=== PATIENT | female | born 1960 | race American Indian/Alaskan Native ===

== ENCOUNTER 2016-09-09 17:22 | Emergency (ER) | payer SELFPAY ==
--- NOTE | 2016-09-09 19:30 | Cat Scan Report ---
FINAL REPORT EXAM: CT HEAD/BRAIN WO CON HISTORY: Injury to back of head TECHNIQUE: CT head without contrast PRIORS: None. FINDINGS: There is acute intraparenchymal hyperdense focus within the right posterior parietal lobe at the calderon-white matter junction consistent in appearance with hemorrhagic contusion. No extra-axial hemorrhage identified. Ventricles and sulci are within normal limits. No additional acute parenchymal abnormalities are seen. No fracture is identified. Visualized portion of the paranasal sinuses and the mastoids are unremarkable. IMPRESSION: Acute right posterior parietal hemorrhagic contusion
[2016-09-09] MEDS ORDERED: ZOFRAN IV ONE (20:17)
[2016-09-09] MEDS ORDERED: MORPHINE IV ONE (20:17)
[2016-09-09] MEDS ORDERED: APRESOLINE IV ONE (20:18)
[2016-09-09] MEDS ORDERED: KEPPRA 1,000 MG in D5W 100 ML IV ONE (20:18)
--- NOTE | 2016-09-09 20:50 | Emergency Department Report ---
ED Dizziness HPI - General Chief Complaint: Dizziness Stated Complaint: FALL/BUMP BACK OF HEAD/PAIN Time Seen by Provider: 09/09/16 20:13 Source: patient Mode of arrival: Ambulatory Limitations: No Limitations - History of Present Illness Initial Comments: 56-year-old female with past medical history of hypertension presenting to the emergency department complaining of dizziness, headache, and lightheadedness. Patient states she had a fall from a flight of steps in her home last week after she tripped. She states that she likely did hit her head because she does not remember the event. Per family members she is able to get up and when EMS came to evaluate her she stated she would not go to the hospital to be evaluated with them. Pt does not recall this. Patient states since the fall she 's been having intermittent headaches, lightheadedness, forgetfulness. Patient states she also has right-sided rib pain shelia mild neck pain. Patient wants her primary care doctor's office today and she was told to come to the ED for further evaluation. She endorses mild neck pain MD Complaint: dizziness, lightheadedness -: Sudden, days(s) (7) Timing: sudden onset Description: lightheadedness History of Trauma: Yes (fell down stairs) Improves With: nothing Worsens With: nothing Associated Symptoms: chest pain. denies: confusion, diaphoresis, fever/chills, loss of appetite, malaise, seizure, shortness of breath, syncope, weakness - Related Data Home Medications Medication Instructions Recorded Confirmed Last Taken Cyproheptadine [Periactin] 4 mg PO BID 09/09/16 09/09/16 09/08/16 Lurasidone HCl [Latuda] 40 mg PO QDAY 09/09/16 09/09/16 09/08/16 Naproxen Sodium [Aleve TAB] 220 mg PO QDAY PRN 09/09/16 09/09/16 09/09/16 Nitroglycerin [Nitrostat] 0.4 mg PO PRN 09/09/16 09/09/16 Unknown Quinapril HCl [Quinapril HCl] 10 mg PO QDAY 09/09/16 09/09/16 09/08/16 busPIRone [Buspar] 10 mg PO TID 09/09/16 09/09/16 09/09/16 traZODone [Desyrel] 100 mg PO QHS 09/09/16 09/09/16 09/08/16 Allergies Allergy/AdvReac Type Severity Reaction Status Date / Time No Known Allergies Allergy Verified 09/09/16 18:08 ED Review of Systems ROS: Stated complaint: FALL/BUMP BACK OF HEAD/PAIN Other details as noted in HPI Constitutional: denies: chills, fever Eyes: denies: eye pain, eye discharge, vision change ENT: denies: ear pain, throat pain Respiratory: denies: cough, shortness of breath, wheezing Cardiovascular: denies: chest pain, palpitations Endocrine: no symptoms reported Gastrointestinal: denies: abdominal pain, nausea, diarrhea Genitourinary: denies: urgency, dysuria, discharge Musculoskeletal: denies: back pain, joint swelling, arthralgia Skin: denies: rash, lesions Neurological: headache, vertigo. denies: weakness, numbness, paresthesias Psychiatric: denies: anxiety, depression Hematological/Lymphatic: denies: easy bleeding, easy bruising ED Past Medical Hx - Past Medical History Previous Medical History?: Yes Hx Hypertension: Yes Additional medical history: Depression, Anxiety - Social History Smoking Status: Never Smoker Substance Use Type: Alcohol - Medications Home Medications: Home Medications Medication Instructions Recorded Confirmed Last Taken Type Cyproheptadine [Periactin] 4 mg PO BID 09/09/16 09/09/16 09/08/16 History Lurasidone HCl [Latuda] 40 mg PO QDAY 09/09/16 09/09/16 09/08/16 History Naproxen Sodium [Aleve TAB] 220 mg PO QDAY PRN 09/09/16 09/09/16 09/09/16 History Nitroglycerin [Nitrostat] 0.4 mg PO PRN 09/09/16 09/09/16 Unknown History Quinapril HCl [Quinapril HCl] 10 mg PO QDAY 09/09/16 09/09/16 09/08/16 History busPIRone [Buspar] 10 mg PO TID 09/09/16 09/09/16 09/09/16 History traZODone [Desyrel] 100 mg PO QHS 09/09/16 09/09/16 09/08/16 History ED Physical Exam - General Limitations: No Limitations General appearance: alert, in no apparent distress - Head Head exam: Present: atraumatic, normocephalic - Eye Eye exam: Present: normal appearance - ENT ENT exam: Present: mucous membranes moist - Neck Neck exam: Present: normal inspection, tenderness (paraspinal tenderness ), full ROM - Respiratory Respiratory exam: Present: normal lung sounds bilaterally. Absent: respiratory distress, wheezes, rales, rhonchi - Cardiovascular Cardiovascular Exam: Present: regular rate, normal rhythm, other (right sided chest wall tenderness ). Absent: systolic murmur, diastolic murmur, rubs, gallop - GI/Abdominal GI/Abdominal exam: Present: soft, normal bowel sounds. Absent: distended, tenderness, guarding - Extremities Exam Extremities exam: Present: normal inspection, full ROM. Absent: tenderness, normal capillary refill, pedal edema, calf tenderness - Back Exam Back exam: Present: normal inspection - Neurological Exam Neurological exam: Present: alert, oriented X3, CN II-XII intact, normal gait, other (GCS 15 ). Absent: motor sensory deficit - Psychiatric Psychiatric exam: Present: normal affect, normal mood - Skin Skin exam: Present: warm, dry, intact, normal color. Absent: rash ED Course Vital Signs 09/09/16 09/09/16 09/09/16 18:08 19:59 20:54 Temperature 98.4 F Pulse Rate 68 74 104 H Respiratory 16 16 Rate Blood Pressure 160/88 180/88 Blood Pressure 196/97 [Left] O2 Sat by Pulse 100 97 Oximetry 09/09/16 22:11 Temperature Pulse Rate 84 Respiratory 16 Rate Blood Pressure Blood Pressure 156/104 [Left] O2 Sat by Pulse 96 Oximetry ED Medical Decision Making - EKG Data -: EKG Interpreted by Me EKG shows normal: sinus rhythm (69), axis (normal ), intervals (QTC 69), QRS complexes Rate: normal - EKG Data When compared to previous EKG there are: previous EKG unavailable - Radiology Data Radiology results: report reviewed, image reviewed interpreted by me: Final impression a CT had acute right posterior parietal hemorrhagic contusion. Dr. SLOAN. CT cervical spine was negative for acute findings. - Medical Decision Making 56-year-old female with past medical history of hypertension presenting to the emergency department complaining of lightheadedness, dizziness, headache likely secondary to cerebral contusion appreciated on CT. Patient will be transferred to [facility] for trauma workup. Trauma surgeon Dr. Bowser has accepted the patient to the ER. Patient GCS 15 well appearing and agrees for transfer. - Differential Diagnosis SDH, SAH, cervical spine fracture Critical Care Time: Yes Critical care attestation.: If time is entered above; I have spent that time in minutes in the direct care of this critically ill patient, excluding procedure time. Critical Care Time: 35 ED Disposition Clinical Impression: Cerebral contusion, Contusion, chest wall, Cervical sprain Disposition: DC/TX-70 ANOTHER TYPE HLTHCARE Is pt being admited?: No Does the pt Need Aspirin: No Condition: Stable Referrals: PRIMARY CARE, [Primary Care Provider] - 3-5 Days
[2016-09-09 21:02] LABS: Partial Thromboplastin Time 26.8 Sec. (24.2-36.6)
--- NOTE | 2016-09-09 21:17 | Cat Scan Report ---
FINAL REPORT EXAM: CT CERVICAL SPINE WO CON HISTORY: FALL TECHNIQUE: CT cervical spine without contrast PRIORS: None. FINDINGS: There is spondylosis with multilevel degenerative disc changes at C3-C4 through C7-T1. There is large prominent anterior bridging osteophyte C5-C6. Facet joints demonstrate normal alignment. Spinous processes are intact. C1 and C2 appear within normal limits. No acute fracture or malalignment identified IMPRESSION: Spondylosis and multilevel degenerative disc changes. Large bridging osteophyte C5-C6 No acute traumatic abnormality identified
[2016-09-09 22:15] VITALS: BP 156/104
--- NOTE | 2016-09-10 09:00 | XRay Report ---
Single view chest: History: Cough. Findings: Heart size upper limit of normal. Trachea is midline. No consolidation, pneumothorax or pleural effusion. Impression: No acute cardiopulmonary findings.
== END 2016-09-09 22:19 | disposition other institution (70) ==
LOC: ED 17:22
DX: S06.330A Contusion and laceration of cerebrum, unspecified, without loss of consciousness, initial encounter (principal); S20.219A Contusion of unspecified front wall of thorax, initial encounter; S13.9XXA Sprain of joints and ligaments of unspecified parts of neck, initial encounter; I10 Essential (primary) hypertension; W10.9XXA Fall (on) (from) unspecified stairs and steps, initial encounter; Y93.9 Activity, unspecified; Y92.9 Unspecified place or not applicable; Y99.9 Unspecified external cause status
CPT/HCPCS: 36415; 70450; 71010; 72125; 85610; 85730; 93005; 93010; 96365; 96375; 99285; J0360; J1953; J2270; J2405

== ENCOUNTER 2018-12-31 14:55 | Emergency (ER) | payer SELFPAY ==
--- NOTE | 2018-12-31 15:28 | Event Note ---
ED Screening Note Date of service: 12/31/18 Time: 15:23 ED Screening Note: This is a 58 y.o. F. that presents to the ER with right shoulder pain for 2 days. Patient states she was out of town and missed a step falling onto right side. Reports swelling, bruising, and decreased ROM of right shoulder. PMH of alcohol abuse, HTN, and depression This initial assessment/diagnostic orders/clinical plan/treatment(s) is/are subject to change based on patients health status, clinical progression and re- assessment by fellow clinical providers in the ED. Further treatment and workup at subsequent clinical providers discretion. Patient/guardian urged not to elope from the ED as their condition may be serious if not clinically assessed and managed. Initial orders include: XR right shoulder
[2018-12-31] MEDS ORDERED: TORADOL IM ONE (16:02)
[2018-12-31] MEDS ORDERED: NORCO 5/325 PO ONE (16:02)
--- NOTE | 2018-12-31 16:31 | Emergency Department Report ---
ED Upper Extremity Inj HPI - General Chief Complaint: Extremity Injury, Upper Stated Complaint: RT SHOULDER PAIN/FALL INJURY Time Seen by Provider: 12/31/18 15:23 Source: patient Mode of arrival: Ambulatory Limitations: No Limitations - History of Present Illness Initial Comments: 58-year-old female with a past medical history of hypertension, depression, anxiety, and alcohol abuse presents to the hospital complaining of right shoulder pain after fall 2 days ago. Patient missed a step and landed on her right shoulder. No head injury or LOC reported. Patient has continued to have constant 8/10 right shoulder pain since injury. Pain worse with movement and palpation. Not alleviated with [id number] Alleve - Related Data Home Medications Medication Instructions Recorded Confirmed Last Taken ALPRAZolam 0.25 mg PO DAILY 12/23/14 12/23/14 Unknown Doxepin HCl 150 mg PO HS 12/23/14 12/23/14 Unknown Cyproheptadine [Periactin] 4 mg PO BID 09/09/16 09/09/16 09/08/16 Lurasidone HCl [Latuda] 40 mg PO QDAY 09/09/16 09/09/16 09/08/16 Naproxen Sodium [Aleve TAB] 220 mg PO QDAY PRN 09/09/16 09/09/16 09/09/16 Nitroglycerin [Nitrostat] 0.4 mg PO PRN 09/09/16 09/09/16 Unknown Quinapril HCl 10 mg PO QDAY 09/09/16 09/09/16 09/08/16 busPIRone [Buspar] 10 mg PO TID 09/09/16 09/09/16 09/09/16 traZODone [Desyrel] 100 mg PO QHS 09/09/16 09/09/16 09/08/16 Previous Rx's Medication Instructions Recorded Last Taken Type HYDROcodone/APAP 5-325 [[place] 1 each PO Q6HR PRN #20 tablet 12/31/18 Unknown Rx 5/325] Ibuprofen [Motrin] 600 mg PO Q8H PRN #30 tablet 12/31/18 Unknown Rx Allergies Allergy/AdvReac Type Severity Reaction Status Date / Time No Known Allergies Allergy Verified 12/31/18 14:56 ED Review of Systems ROS: Stated complaint: RT SHOULDER PAIN/FALL INJURY Other details as noted in HPI Comment: All other systems reviewed and negative ED Past Medical Hx - Past Medical History Hx Hypertension: Yes Hx Congestive Heart Failure: No Hx Diabetes: No Hx Psychiatric Treatment: Yes (depression anxiety and etoh) Hx Asthma: No Hx COPD: No Hx HIV: No Additional medical history: Depression. Alcohol abuse - Surgical History Additional Surgical History: ankle surgery. x1 - Social History Smoking Status: Never Smoker Substance Use Type: None - Medications Home Medications: Home Medications Medication Instructions Recorded Confirmed Last Taken Type ALPRAZolam 0.25 mg PO DAILY 12/23/14 12/23/14 Unknown History Doxepin HCl 150 mg PO HS 12/23/14 12/23/14 Unknown History Cyproheptadine [Periactin] 4 mg PO BID 09/09/16 09/09/16 09/08/16 History Lurasidone HCl [Latuda] 40 mg PO QDAY 09/09/16 09/09/16 09/08/16 History Naproxen Sodium [Aleve TAB] 220 mg PO QDAY PRN 09/09/16 09/09/16 09/09/16 History Nitroglycerin [Nitrostat] 0.4 mg PO PRN 09/09/16 09/09/16 Unknown History Quinapril HCl 10 mg PO QDAY 09/09/16 09/09/16 09/08/16 History busPIRone [Buspar] 10 mg PO TID 09/09/16 09/09/16 09/09/16 History traZODone [Desyrel] 100 mg PO QHS 09/09/16 09/09/16 09/08/16 History HYDROcodone/APAP 5-325 [[place] 1 each PO Q6HR PRN #20 tablet 12/31/18 Unknown Rx 5/325] Ibuprofen [Motrin] 600 mg PO Q8H PRN #30 tablet 12/31/18 Unknown Rx ED Physical Exam - General Limitations: No Limitations - Other Other exam information: Gen.: No acute distress Head: Atraumatic Eyes: Normal appearance ENT: Moist mucous membranes Neck: Normal appearance, no posterior midline tenderness, no meningismus Chest: Clear to auscultation bilaterally Cardiovascular: Regular rate and rhythm Abdomen: Normal appearance, soft, nontender, no rebound or guarding, normal bowel sounds Back: Normal appearance, nontender Extremity: right shoulder tenderness ant and lat. limited movement due to pain. unable to abduccted due to pain, pain with internal and external rotation. 2 radial pulses, no elbow, wrist or hand tenderness Neuro: Alert X O 3, clear speech, no focal motor or sensory deficit Psychiatric: Appropriate Skin: No rash ED Course Vital Signs 12/31/18 15:23 Temperature 98.7 F Pulse Rate 99 H Respiratory 18 Rate Blood Pressure 128/68 O2 Sat by Pulse 96 Oximetry ED Medical Decision Making - Radiology Data Radiology results: report reviewed Right shoulder, 3 views INDICATION: Pain following fall 2 days ago FINDINGS: There is a minimally displaced and distracted fracture through the g reater tuberosity. Fracture line may extend into the region of the anatomical neck of humerus as well. No dislocation is seen. - Medical Decision Making norco, toradol, right shoulder immobilizer placed. + humeral head fxt f/u with ortho advised - Differential Diagnosis fxt, contusion, sprain Critical Care Time: No Critical care attestation.: If time is entered above; I have spent that time in minutes in the direct care of this critically ill patient, excluding procedure time. ED Disposition Clinical Impression: Fracture of humeral head, left, closed Disposition: DC-01 TO HOME OR SELFCARE Is pt being admited?: No Does the pt Need Aspirin: No Condition: Stable Instructions: Arm Fracture in Adults (ED) Additional Instructions: Take the medication as prescribed. Follow-up with your doctor or with the doctor/clinic provided. Return if symptoms worsen as indicated by your discharge instructions. Prescriptions: Ibuprofen [Motrin] 600 mg PO Q8H PRN #30 tablet PRN Reason: Pain HYDROcodone/APAP 5-325 [[place] 5/325] 1 each PO Q6HR PRN #20 tablet PRN Reason: Pain Referrals: LAZARA JOHNSON MD [Staff Physician] - 3-5 Days (orthopedic doctor ) Time of Disposition: 17:40
--- NOTE | 2018-12-31 16:58 | XRay Report ---
Right shoulder, 3 views INDICATION: Pain following fall 2 days ago FINDINGS: There is a minimally displaced and distracted fracture through the greater tuberosity. Frac ture line may extend into the region of the anatomical neck of humerus as well. No dislocation is see n. Signer Name: Tulio Barth MD Signed: 12/31/2018 4:53 PM Workstation Name: [id number]
[2018-12-31 18:05] VITALS: BP 149/80
== END 2018-12-31 18:05 | disposition home or self-care (01) ==
LOC: ED 14:55
DX: S42.291A Other displaced fracture of upper end of right humerus, initial encounter for closed fracture (principal); I10 Essential (primary) hypertension; F32.9 Major depressive disorder, single episode, unspecified; F41.9 Anxiety disorder, unspecified; Z79.899 Other long term (current) drug therapy; W10.9XXA Fall (on) (from) unspecified stairs and steps, initial encounter; Y93.89 Activity, other specified; Y92.89 Other specified places as the place of occurrence of the external cause; Y99.8 Other external cause status
CPT/HCPCS: 29105; 73030; 96372; 99283; J1885

== ENCOUNTER 2019-05-08 17:07 | Observation (INO) | payer OTHER ==
[2019-05-08] MEDS ORDERED: ASPIRIN 325 MG TAB PO ONE (18:22)
[2019-05-08] MEDS ORDERED: ASPIRIN 81 MG TAB CHEW PO ONE (19:11)
[2019-05-08 19:14] LABS: Basophils % (Auto) 0.4 % (0.0-1.8); Eosinophils % (Auto) 0.2 % (0.0-4.3); Hematocrit 36.3 % (30.3-42.9); Hemoglobin 11.9 gm/dl (10.1-14.3); Lymphocytes % (Auto) 16.5 % (13.4-35.0); Mean Corpuscular HGB Conc 33 % (30-34); Mean Corpuscular Volume 85 fl (79-97); Monocytes # (Auto) 0.6 K/mm3 (0.0-0.8); Monocytes % (Auto) 9.8 % (0.0-7.3); Platelet Count 166 K/mm3 (140-440); Red Blood Count 4.28 M/mm3 (3.65-5.03); Red Cell Distribution Width 16.8 % (13.2-15.2)
[2019-05-08] MEDS ORDERED: ONDANSETRON 4 MG/2 ML INJ IV ONE (19:16)
--- NOTE | 2019-05-08 19:16 | Emergency Department Report ---
ED Chest Pain HPI - General Chief Complaint: Chest Pain Stated Complaint: ANIEXTY/RAPID HR Time Seen by Provider: 05/08/19 19:06 Source: EMS Mode of arrival: Stretcher Limitations: No Limitations - History of Present Illness Initial Comments: Patient is 59 years old female with history of hypertension. Patient presented to the ER complaining of substernal chest pain since last night. Patient described her pain as squeezing with no radiation. Patient stated the pain improved with nitroglycerin. Patient denied any shortness of breath. She stated that she has been nauseated and feeling of generalized numbness. Patient denied any fever or chills. No cough. MD Complaint: chest pain -: days(s) (2) Pain Location: substernal Pain Radiation: none Severity scale (0 -10): 9 Quality: squeezing Consistency: constant Improves With: nitroglycerin - Related Data Home Medications Medication Instructions Recorded Confirmed Last Taken ALPRAZolam 0.25 mg PO DAILY 12/23/14 12/23/14 Unknown Doxepin HCl 150 mg PO HS 12/23/14 12/23/14 Unknown Cyproheptadine [Periactin] 4 mg PO BID 09/09/16 09/09/16 09/08/16 Lurasidone HCl [Latuda] 40 mg PO QDAY 09/09/16 09/09/16 09/08/16 Naproxen Sodium [Aleve TAB] 220 mg PO QDAY PRN 09/09/16 09/09/16 09/09/16 Nitroglycerin [Nitrostat] 0.4 mg PO PRN 09/09/16 09/09/16 Unknown Quinapril HCl 10 mg PO QDAY 09/09/16 09/09/16 09/08/16 busPIRone [Buspar] 10 mg PO TID 09/09/16 09/09/16 09/09/16 traZODone [Desyrel] 100 mg PO QHS 09/09/16 09/09/16 09/08/16 Previous Rx's Medication Instructions Recorded Last Taken Type HYDROcodone/APAP 5-325 [[place] 1 each PO Q6HR PRN #20 tablet 12/31/18 Unknown Rx 5/325] Ibuprofen [Motrin] 600 mg PO Q8H PRN #30 tablet 12/31/18 Unknown Rx Allergies Allergy/AdvReac Type Severity Reaction Status Date / Time No Known Allergies Allergy Verified 05/08/19 18:22 Heart Score - HEART Score History: Moderately suspicious EKG: Non-specific Age: 45-65 Risk factors: 1-2 risk factors Troponin: < normal limit HEART Score: 4 - Critical Actions Critical Actions: 4-6 pts:12-16.6% risk of adverse cardiac event. Should be admitted ED Review of Systems ROS: Stated complaint: ANIEXTY/RAPID HR Other details as noted in HPI Comment: All other systems reviewed and negative Constitutional: denies: chills, fever Respiratory: denies: cough, shortness of breath, SOB with exertion Cardiovascular: chest pain. denies: palpitations, dyspnea on exertion Gastrointestinal: nausea, vomiting. denies: abdominal pain, diarrhea, constipation, hematemesis, melena, hematochezia Musculoskeletal: denies: back pain Neurological: numbness (Generalized). denies: headache, weakness, paresthesias, confusion ED Past Medical Hx - Past Medical History Previous Medical History?: Yes Hx Hypertension: Yes Hx Congestive Heart Failure: No Hx Diabetes: No Hx Psychiatric Treatment: Yes (depression anxiety and etoh) Hx Asthma: No Hx COPD: No Hx HIV: No Additional medical history: Depression. Alcohol abuse - Surgical History Additional Surgical History: ankle surgery. x1 - Social History Smoking Status: Never Smoker Substance Use Type: Alcohol - Medications Home Medications: Home Medications Medication Instructions Recorded Confirmed Last Taken Type ALPRAZolam 0.25 mg PO DAILY 12/23/14 12/23/14 Unknown History Doxepin HCl 150 mg PO HS 12/23/14 12/23/14 Unknown History Cyproheptadine [Periactin] 4 mg PO BID 09/09/16 09/09/16 09/08/16 History Lurasidone HCl [Latuda] 40 mg PO QDAY 09/09/16 09/09/16 09/08/16 History Naproxen Sodium [Aleve TAB] 220 mg PO QDAY PRN 09/09/16 09/09/16 09/09/16 Hi story Nitroglycerin [Nitrostat] 0.4 mg PO PRN 09/09/16 09/09/16 Unknown History Quinapril HCl 10 mg PO QDAY 09/09/16 09/09/16 09/08/16 History busPIRone [Buspar] 10 mg PO TID 09/09/16 09/09/16 09/09/16 History traZODone [Desyrel] 100 mg PO QHS 09/09/16 09/09/16 09/08/16 History HYDROcodone/APAP 5-325 [[place] 1 each PO Q6HR PRN #20 tablet 12/31/18 Unknown Rx 5/325] Ibuprofen [Motrin] 600 mg PO Q8H PRN #30 tablet 12/31/18 Unknown Rx ED Physical Exam - General Limitations: No Limitations General appearance: alert, in no apparent distress - Head Head exam: Present: atraumatic, normocephalic, normal inspection - Eye Eye exam: Present: normal appearance - ENT ENT exam: Present: normal exam, normal orophraynx, mucous membranes moist - Neck Neck exam: Present: normal inspection, full ROM. Absent: tenderness, meningismus, lymphadenopathy, thyromegaly - Respiratory Respiratory exam: Present: normal lung sounds bilaterally - Cardiovascular Cardiovascular Exam: Present: regular rate, normal rhythm, normal heart sounds - GI/Abdominal GI/Abdominal exam: Present: soft, normal bowel sounds. Absent: distended, t enderness, guarding, rebound, rigid, diminished bowel sounds, organomegaly, mass, bruit, pulsatile mass, hernia - Extremities Exam Extremities exam: Present: normal inspection, full ROM, normal capillary refill. Absent: pedal edema, calf tenderness - Back Exam Back exam: Present: normal inspection, full ROM. Absent: CVA tenderness (R), CVA tenderness (L), muscle spasm, paraspinal tenderness, vertebral tenderness - Neurological Exam Neurological exam: Present: alert, oriented X3, CN II-XII intact, normal gait, reflexes normal - Psychiatric Psychiatric exam: Present: normal mood - Skin Skin exam: Present: warm, intact, normal color ED Course Vital Signs 05/08/19 05/08/19 17:57 21:43 Temperature 98.3 F Pulse Rate 89 81 Respiratory 16 16 Rate Blood Pressure 156/79 Blood Pressure 158/76 [Left] O2 Sat by Pulse 100 100 Oximetry ED Medical Decision Making - Lab Data Result diagrams: 05/08/19 19:01 05/08/19 19:01 - EKG Data -: EKG Interpreted by Mo EKG shows normal: sinus rhythm Rate: normal - EKG Data Interpretation: no acute changes - Radiology Data Radiology results: report reviewed - Medical Decision Making Patient is 59 years old female with history of hypertension. Patient presented to the ER complaining of substernal chest pain since last night. Patient described her pain as squeezing with no radiation. Patient stated the pain improved with nitroglycerin. Patient denied any shortness of breath. She stated that she has been nauseated and feeling of generalized numbness. Patient denied any fever or chills. No cough. Patient EKG showed no ST elevation. Chest x-ray is unremarkable. Labs reviewed and unremarkable including 2 sets of troponin. Patient discussed with Dr. Gifty Niño, she agreed to admit the patient to medical service for further management. Critical care attestation.: If time is entered above; I have spent that time in minutes in the direct care of this critically ill patient, excluding procedure time. ED Disposition Clinical Impression: Chest pain Disposition: OP ADMIT IP TO THIS HOSP Is pt being admited?: Yes Condition: Stable Instructions: Chest Pain (ED)
--- NOTE | 2019-05-08 19:25 | XRay Report ---
CHEST 1 VIEW 05/08/2019 6:50 PM INDICATION / CLINICAL INFORMATION: Chest Pain. COMPARISON: Chest x-ray 09/09/2016 FINDINGS: SUPPORT DEVICES: None. HEART / MEDIASTINUM: No significant abnormality. LUNGS / PLEURA: No significant pulmonary or pleural abnormality. No pneumothorax. ADDITIONAL FINDINGS: No significant additional findings. IMPRESSION: 1. No acute findings. Signer Name: Isreal James MD Signed: 05/08/2019 7:11 PM Workstation Name: [id number]
[2019-05-08 19:34] LABS: BUN/Creatinine Ratio 6; Blood Urea Nitrogen 5 mg/dL (7-17); Calcium 8.3 mg/dL (8.4-10.2); Hemolysis Index 7
[2019-05-08 19:47] LABS: Alanine Aminotransferase 31 units/L (7-56); Albumin 4.3 g/dL (3.9-5)
[2019-05-08 19:50] LABS: Bilirubin,Direct < 0.2 mg/dL (0-0.2)
[2019-05-08 19:51] LABS: INR 1.06 (0.87-1.13)
[2019-05-08] MEDS ORDERED: MORPHINE 2 MG/1 ML INJ ONE (21:51)
[2019-05-08] MEDS ORDERED: MORPHINE 4 MG/1 ML INJ IV ONE (21:53)
--- NOTE | 2019-05-08 22:36 | History and Physical Report ---
History of Present Illness Date of admission: 05/08/19 22:00 History of present illness: 59-year-old woman with history anxiety, depression, hypertension comes emergency room with complaints of chest pain that started 3 days ago. Pain is in the epigastric area which he describes as a sharp sensation,intermittent for hours, intensity 4/10, no radiation, cannot identify exacerbating or relieving factors. Admits to nausea vomiting, no shortness of breath, diaphoresis or palpitation the patient is being admitted for chest pain evaluation Review Of Systems: Constitutional: no weight loss, fever, chills Ears, eyes, nose, mouth and throat: no nasal congestion, no nasal discharge, no sinus pressure, blurry vision, diplopia Neck: No neck pain or rigidity. Cardiovascular: No palpitations, +chest pain Respiratory: no shortness of breath, no cough Gastrointestinal: No hematochezia, abdominal pain Genitourinary : no dysuria, frequency Musculoskeletal: no muscle ache , joint pain Integumentary: no rash, no pruritis Neurological: no parathesias, focal weakness Endocrine: no cold or heat intolerance, no polyuria or polydipsia Hematologic/Lymphatic: no easy bruising, no easy bleeding, no gland swelling Allergic/Immunologic: no urticaria, no angioedema. PAST MEDICAL HISTORY: Anxiety, hypertension, depression PAST SURGICAL HISTORY: , ankle SOCIAL HISTORY: Drinks 6 packs of beer a day, last drink was last night, no drugs, tobacco FAMILY HISTORY: Hypertension Medications and Allergies Allergies Allergy/AdvReac Type Severity Reaction Status Date / Time No Known Allergies Allergy Verified 05/08/19 18:22 Home Medications Medication Instructions Recorded Confirmed Last Taken Type ALPRAZolam 0.25 mg PO DAILY 12/23/14 12/23/14 Unknown History Doxepin HCl 150 mg PO HS 12/23/14 12/23/14 Unknown History Cyproheptadine [Periactin] 4 mg PO BID 09/09/16 09/09/16 09/08/16 History Lurasidone HCl [Latuda] 40 mg PO QDAY 09/09/16 09/09/16 09/08/16 History Naproxen Sodium [Aleve TAB] 220 mg PO QDAY PRN 09/09/16 09/09/16 09/09/16 History Nitroglycerin [Nitrostat] 0.4 mg PO PRN 09/09/16 09/09/16 Unknown History Quinapril HCl 10 mg PO QDAY 09/09/16 09/09/16 09/08/16 History busPIRone [Buspar] 10 mg PO TID 09/09/16 09/09/16 09/09/16 History traZODone [Desyrel] 100 mg PO QHS 09/09/16 09/09/16 09/08/16 History HYDROcodone/APAP 5-325 [[place] 1 each PO Q6HR PRN #20 tablet 12/31/18 Unknown Rx 5/325] Ibuprofen [Motrin] 600 mg PO Q8H PRN #30 tablet 12/31/18 Unknown Rx Active Meds: Active Medications Enoxaparin Sodium (Enoxaparin) 40 mg SUB-Q QAM ROLY Exam - Physical Exam Narrative exam: Gen. appearance: Patient lying in bed, no apparent distress HEENT: Normocephalic, atraumatic, pupils equally round and reactive to light, extraocular movement intact, and no sclericterus,. No JVD or thyromegaly or nodule,neck supple, no carotid bruit ,mucous membranes moist, no exudate or erythema Heart: S1, S2, regular rate and rhythm Lungs: Clear bilaterally, breathing comfortable Abdomen: Positive bowel sounds, nontender, nondistended, no organomegaly Extremity: no edema, cyanosis, clubbing Skin: No rash, nodules, warm, dry Neuro: speech is fluent, cranial nerves II to XII intact, motor and sensory intact - Constitutional Vitals: Temp Pulse Resp BP Pulse Ox 98.3 F 81 16 158/76 100 05/08/19 17:57 05/08/19 21:43 05/08/19 21:43 05/08/19 21:43 05/08/19 21:43 Results - Labs CBC & Chem 7: 05/08/19 19:01 05/08/19 19:01 Labs: Abnormal lab results 05/08/19 05/08/19 05/08/19 Range/Units 19:01 19:01 19:01 RDW 16.8 H (13.2-15.2) % [place] % (Auto) 9.8 H (0.0-7.3) % Lymph # 1.0 L (1.2-5.4) K/mm3 Seg Neutrophils % 73.1 H (40.0-70.0) % Potassium 3.5 L (3.6-5.0) mmol/L Chloride 96.9 L (98-107) mmol/L Carbon Dioxide 19 L (22-30) mmol/L BUN 5 L (7-17) mg/dL Glucose 147 H (65-100) mg/dL Calcium 8.3 L (8.4-10.2) mg/dL Magnesium 1.20 L (1.7-2.3) mg/dL AST 44 H (5-40) units/L Lipase (13-60) units/L // Range/Units 19:01 RDW (13.2-15.2) % [place] % (Auto) (0.0-7.3) % Lymph # (1.2-5.4) K/mm3 Seg Neutrophils % (40.0-70.0) % Potassium (3.6-5.0) mmol/L Chloride (98-107) mmol/L Carbon Dioxide (22-30) mmol/L BUN (7-17) mg/dL Glucose (65-100) mg/dL Calcium (8.4-10.2) mg/dL Magnesium (1.7-2.3) mg/dL AST (5-40) units/L Lipase 7 L (13-60) units/L - Imaging and Cardiology EKG: image reviewed Chest x-ray: report reviewed Assessment and Plan Assessment chest pain Check cardiac enzymes, stress test Start IV morphine, aspirin Hypomagnesemia/hypokalemia Replete magnesium and potassium, follow labs Alcohol abuse Start CIWA protocol with IV Ativan Anxiety/depression, stable DVT prophylaxis
[2019-05-08] MEDS ORDERED: ACETAMINOPHEN 325 MG TAB PO PRN (23:15)
[2019-05-08] MEDS ORDERED: MAGNESIUM SULFATE 2 GM/50 ML BAG IV ONE (23:15)
[2019-05-08] MEDS ORDERED: ONDANSETRON 4 MG/2 ML INJ IV PRN (23:15)
[2019-05-08] MEDS ORDERED: MORPHINE 2 MG/1 ML INJ IV PRN (23:15)
[2019-05-08] MEDS ORDERED: LORazepam 2 MG/ML VIAL IV PRN ×2 (23:18)
[2019-05-08] MEDS ORDERED: POTASSIUM CHLORIDE ER 20 MEQ TAB PO ONE (23:45)
[2019-05-09] MEDS ORDERED: ZOLPIDEM 5 MG TAB PO ONE (01:23)
[2019-05-09 04:57] LABS: Basophils % (Auto) 0.6 % (0.0-1.8); Eosinophils % (Auto) 0.6 % (0.0-4.3); Hematocrit 36.6 % (30.3-42.9); Mean Corpuscular HGB Conc 33 % (30-34); Mean Corpuscular Volume 85 fl (79-97); Monocytes # (Auto) 0.7 K/mm3 (0.0-0.8); Monocytes % (Auto) 12.3 % (0.0-7.3); Platelet Count 158 K/mm3 (140-440); Red Blood Count 4.31 M/mm3 (3.65-5.03)
[2019-05-09 05:13] LABS: BUN/Creatinine Ratio 9; Blood Urea Nitrogen 6 mg/dL (7-17); Calcium 8.1 mg/dL (8.4-10.2); Hemolysis Index 2
[2019-05-09] MEDS ORDERED: REGADENOSON 0.4 MG/5 ML INJ IV ONE (07:44)
[2019-05-09] MEDS ORDERED: ASPIRIN 81 MG TAB CHEW PO SCH (10:00)
[2019-05-09] MEDS ORDERED: ENOXAPARIN 40 MG/0.4 ML INJ SUB-Q SCH (10:00)
[2019-05-09] MEDS ORDERED: MAGNESIUM SULFATE 2 GM/50 ML BAG IV ONE (13:00)
[2019-05-09] MEDS ORDERED: MAGNESIUM OXIDE 400 MG TAB PO SCH (13:00)
[2019-05-09 14:05] VITALS: BP 154/75
--- NOTE | 2019-05-09 15:37 | Discharge Summary ---
Providers - Providers Date of Admission: 05/08/19 22:00 Date of discharge: 05/09/19 Attending physician: GWEN RICHARDS Primary care physician: DILLON BRICEÑO MD Hospitalization Condition: Fair Disposition: DC-01 TO HOME OR SELFCARE Core Measure Documentation - Palliative Care Palliative Care/ Comfort Measures: Not Applicable - Core Measures Any of the following diagnoses?: none Exam - Constitutional Vitals: Temp Pulse Resp BP Pulse Ox 98.6 F 72 18 154/75 100 05/09/19 11:53 05/09/19 11:53 05/09/19 11:53 05/09/19 11:53 05/09/19 11:53 Plan Activity: no restrictions Diet: low fat, low cholesterol, low salt Plan of Treatment: 1.Follow up with PCP in 1 week. Follow up with: PRIMARY CAREMD [Primary Care Provider] - 3-5 Days
--- NOTE | 2019-05-09 21:37 | Treadmill Report ---
THALLIUM STRESS TEST LEFT VENTRICLE: Left ventricular chamber size is within normal spread. Perfusion study demonstrates homogeneous uptake of the tracer in all segments, no defects identified. Gated analysis demonstrates normal left ventricular systolic function, ejection fraction greater than 70%. CONCLUSION: Normal myocardial perfusion study. JOB# [id number] CA/NTS
== END 2019-05-09 17:50 | disposition home or self-care (01) ==
LOC: ED 17:07 → 4A 22:00
PROVIDERS: ADMIT Internal Medicine; ATTEND Internal Medicine
DX: R07.89 Other chest pain (principal); E83.42 Hypomagnesemia; E87.6 Hypokalemia; F10.10 Alcohol abuse, uncomplicated; F41.8 Other specified anxiety disorders; I10 Essential (primary) hypertension; Z79.899 Other long term (current) drug therapy
CPT/HCPCS: 36415; 71045; 78452; 80048; 80076; 82550; 82553; 83690; 83735; 84484; 85025; 85610; 85730; 93005; 93010; 93017; 96365; 96366; 96372; 96375; 99285; A9502; G0378; J1650; J2270; J2405; J2785; J3475

== ENCOUNTER 2019-05-30 19:26 | Emergency (ER) | payer SELFPAY ==
[2019-05-30] MEDS ORDERED: LORazepam 2 MG/ML VIAL IV ONE (19:53)
[2019-05-30] MEDS ORDERED: ASPIRIN 325 MG TAB PO ONE (19:54)
[2019-05-30 20:21] LABS: Basophils # (Auto) 0.1 K/mm3 (0.0-0.1); Basophils % (Auto) 0.6 % (0.0-1.8); Hematocrit 40.9 % (30.3-42.9); Hemoglobin 13.1 gm/dl (10.1-14.3); Lymphocytes # (Auto) 1.1 K/mm3 (1.2-5.4); Lymphocytes % (Auto) 11.1 % (13.4-35.0); Mean Corpuscular HGB Conc 32 % (30-34); Mean Corpuscular Volume 88 fl (79-97); Monocytes # (Auto) 0.4 K/mm3 (0.0-0.8); Monocytes % (Auto) 4.3 % (0.0-7.3); Platelet Count 220 K/mm3 (140-440); Red Blood Count 4.65 M/mm3 (3.65-5.03); Red Cell Distribution Width 17.7 % (13.2-15.2)
--- NOTE | 2019-05-30 20:47 | XRay Report ---
CHEST 1 VIEW INDICATION: MAIN: Chest Pain; Pt arrives with EMS c/o chest pn x 1 hr. States she was "resting" at onset. EMS pt was exhibiting "anxiety like" symptoms upon their arrival with hyperventilation. Pt hx anxiety and ht n. COMPARISON: 05/08/2019 FINDINGS: Support devices: None. Heart: Normal. Lungs/Pleura: No acute pulmonary or pleural findings. IMPRESSION: 1. No acute findings. Signer Name: Oscar Rodney MD Signed: 05/30/2019 8:43 PM Workstation Name: [id number]
[2019-05-30 21:31] LABS: BUN/Creatinine Ratio 7; Blood Urea Nitrogen 8 mg/dL (7-17); Calcium 8.7 mg/dL (8.4-10.2); Hemolysis Index 11
--- NOTE | 2019-05-30 22:55 | Emergency Department Report ---
ED General Adult HPI - General Chief complaint: Chest Pain Stated complaint: CHEST PAIN Time Seen by Provider: 05/30/19 19:49 Source: patient, EMS Mode of arrival: Stretcher Limitations: No Limitations, Other (Patient is extremely anxious on exam) - History of Present Illness Initial comments: The patient presents to the emergency department the chief complaint of feeling anxious and chest tightness. Patient has a history of anxiety and depression an d states approximately 3 to 4 hours prior to her emergency department visit she began to feel very anxious and began to have chest tightness. Patient states this feels exactly like her previous anxiety attacks. -: Sudden Severity scale (0 -10): 0 Consistency: constant Improves with: none Worsens with: none Associated Symptoms: denies other symptoms Treatments Prior to Arrival: none - Related Data Home Medications Medication Instructions Recorded Confirmed Last Taken ALPRAZolam 0.25 mg PO DAILY 12/23/14 12/23/14 Unknown Doxepin HCl 150 mg PO HS 12/23/14 12/23/14 Unknown Cyproheptadine [Periactin] 4 mg PO BID 09/09/16 09/09/16 09/08/16 Lurasidone HCl [Latuda] 40 mg PO QDAY 09/09/16 09/09/16 09/08/16 Naproxen Sodium [Aleve TAB] 220 mg PO QDAY PRN 09/09/16 09/09/16 09/09/16 Nitroglycerin [Nitrostat] 0.4 mg PO PRN 09/09/16 09/09/16 Unknown Quinapril HCl 10 mg PO QDAY 09/09/16 09/09/16 09/08/16 busPIRone [Buspar] 10 mg PO TID 09/09/16 09/09/16 09/09/16 traZODone [Desyrel] 100 mg PO QHS 09/09/16 09/09/16 09/08/16 Previous Rx's Medication Instructions Recorded Last Taken Type HYDROcodone/APAP 5-325 [[place] 1 each PO Q6HR PRN #20 tablet 12/31/18 Unknown Rx 5-325 mg TAB] Ibuprofen [Motrin 600 MG tab] 600 mg PO Q8H PRN #30 tablet 12/31/18 Unknown Rx Famotidine [Pepcid] 20 mg PO BID #60 tablet 05/09/19 Unknown Rx Magnesium Oxide [Mag-Ox] 400 mg PO QDAY #28 tablet 05/09/19 Unknown Rx hydrOXYzine HCL [Atarax] 25 mg PO Q6HR PRN #15 tablet 05/31/19 Unknown Rx Allergies Allergy/AdvReac Type Severity Reaction Status Date / Time No Known Allergies Allergy Verified 05/08/19 18:22 ED Review of Systems ROS: Stated complaint: CHEST PAIN Other details as noted in HPI Comment: All other systems reviewed and negative Constitutional: denies: chills, fever Eyes: denies: eye pain, eye discharge, vision change ENT: denies: ear pain, throat pain Respiratory: denies: cough, shortness of breath, wheezing Cardiovascular: denies: chest pain, palpitations Endocrine: no symptoms reported Gastrointestinal: denies: abdominal pain, nausea, diarrhea Genitourinary: denies: urgency, dysuria, discharge Musculoskeletal: denies: back pain, joint swelling, arthralgia Skin: denies: rash, lesions Neurological: denies: headache, weakness, paresthesias Psychiatric: denies: anxiety, depression Hematological/Lymphatic: denies: easy bleeding, easy bruising ED Past Medical Hx - Past Medical History Hx Hypertension: Yes Hx Congestive Heart Failure: No Hx Diabetes: No Hx Psychiatric Treatment: Yes (depression anxiety and etoh) Hx Asthma: No Hx COPD: No Hx HIV: No Additional medical history: Depression. Alcohol abuse - Surgical History Past Surgical History?: Yes Additional Surgical History: ankle surgery. x1 - Social History Smoking Status: Never Smoker Substance Use Type: Alcohol - Medications Home Medications: Home Medications Medication Instructions Recorded Confirmed Last Taken Type ALPRAZolam 0.25 mg PO DAILY 12/23/14 12/23/14 Unknown History Doxepin HCl 150 mg PO HS 12/23/14 12/23/14 Unknown History Cyproheptadine [Periactin] 4 mg PO BID 09/09/16 09/09/16 09/08/16 History Lurasidone HCl [Latuda] 40 mg PO QDAY 09/09/16 09/09/16 09/08/16 History Naproxen Sodium [Aleve TAB] 220 mg PO QDAY PRN 09/09/16 09/09/16 09/09/16 History Nitroglycerin [Nitrostat] 0.4 mg PO PRN 09/09/16 09/09/16 Unknown History Quinapril HCl 10 mg PO QDAY 09/09/16 09/09/16 09/08/16 History busPIRone [Buspar] 10 mg PO TID 09/09/16 09/09/16 09/09/16 History traZODone [Desyrel] 100 mg PO QHS 09/09/16 09/09/16 09/08/16 History HYDROcodone/APAP 5-325 [[place] 1 each PO Q6HR PRN #20 tablet 12/31/18 Unknown Rx 5-325 mg TAB] Ibuprofen [Motrin 600 MG tab] 600 mg PO Q8H PRN #30 tablet 12/31/18 Unknown Rx Famotidine [Pepcid] 20 mg PO BID #60 tablet 05/09/19 Unknown Rx Magnesium Oxide [Mag-Ox] 400 mg PO QDAY #28 tablet 05/09/19 Unknown Rx hydrOXYzine HCL [Atarax] 25 mg PO Q6HR PRN #15 tablet 05/31/19 Unknown Rx ED Physical Exam - General Limitations: No Limitations General appearance: alert, in no apparent distress, anxious - Head Head exam: Present: atraumatic, normocephalic - Eye Eye exam: Present: normal appearance - ENT ENT exam: Present: mucous membranes moist - Neck Neck exam: Present: normal inspection - Respiratory Respiratory exam: Present: normal lung sounds bilaterally. Absent: respiratory distress - Cardiovascular Cardiovascular Exam: Present: normal rhythm. Absent: tachycardia, systolic murmur, diastolic murmur, rubs, gallop - GI/Abdominal GI/Abdominal exam: Present: soft, normal bowel sounds. Absent: distended, tenderness - Extremities Exam Extremities exam: Present: normal inspection - Back Exam Back exam: Present: normal inspection - Neurological Exam Neurological exam: Present: alert, oriented X3, CN II-XII intact. Absent: motor sensory deficit - Psychiatric Psychiatric exam: Present: normal affect, normal mood - Skin Skin exam: Present: warm, dry, intact, normal color. Absent: rash ED Course Vital Signs 05/30/19 05/30/19 05/30/19 19:44 21:09 22:46 Temperature 99 F Pulse Rate 130 H 102 H Respiratory 22 14 14 Rate Blood Pressure 187/92 143/88 [Left] O2 Sat by Pulse 98 96 97 Oximetry 05/30/19 23:08 Temperature Pulse Rate 96 H Respiratory 14 Rate Blood Pressure 146/82 [Left] O2 Sat by Pulse 98 Oximetry ED Medical Decision Making - Lab Data Result diagrams: 05/30/19 20:03 05/30/19 20:03 Lab Results 05/30/19 05/30/19 05/30/19 Range/Units 20:03 20:03 22:42 WBC 9.7 (4.5-11.0) K/mm3 RBC 4.65 (3.65-5.03) M/mm3 Hgb 13.1 (10.1-14.3) gm/dl Hct 40.9 (30.3-42.9) % MCV 88 (79-97) fl MCH 28 (28-32) pg MCHC 32 (30-34) % RDW 17.7 H (13.2-15.2) % Plt Count 220 (140-440) K/mm3 Lymph % (Auto) 11.1 L (13.4-35.0) % [place] % (Auto) 4.3 (0.0-7.3) % Eos % (Auto) 0.0 (0.0-4.3) % Baso % (Auto) 0.6 (0.0-1.8) % Lymph # 1.1 L (1.2-5.4) K/mm3 [place] # 0.4 (0.0-0.8) K/mm3 Eos # 0.0 (0.0-0.4) K/mm3 Baso # 0.1 (0.0-0.1) K/mm3 Seg Neutrophils % 84.0 H (40.0-70.0) % Seg Neutrophils # 8.1 H (1.8-7.7) K/mm3 Sodium 141 (137-145) mmol/L Potassium 4.5 (3.6-5.0) mmol/L Chloride 95.9 L (98-107) mmol/L Carbon Dioxide 11 L (22-30) mmol/L Anion Gap 39 mmol/L BUN 8 (7-17) mg/dL Creatinine 1.2 (0.7-1.2) mg/dL Estimated GFR 55 ml/min BUN/Creatinine Ratio 7 % Glucose 262 H (65-100) mg/dL Calcium 8.7 (8.4-10.2) mg/dL Troponin T < 0.010 < 0.010 (0.00-0.029) ng/mL - EKG Data -: EKG Interpreted by Me EKG shows normal: sinus rhythm Rate: normal - Radiology Data Radiology results: report reviewed - Medical Decision Making Patient has significant improvement of her symptoms after receiving Ativan IV Critical care attestation.: If time is entered above; I have spent that time in minutes in the direct care of this critically ill patient, excluding procedure time. ED Disposition Clinical Impression: Anxiety Disposition: DC-01 TO HOME OR SELFCARE Is pt being admited?: No Does the pt Need Aspirin: No Condition: Stable Instructions: Anxiety (ED) Additional Instructions: return if worse Prescriptions: hydrOXYzine HCL [Atarax] 25 mg PO Q6HR PRN #15 tablet PRN Reason: Anxiety Referrals: PRIMARY CARE, [Primary Care Provider] - 3-5 Days [facility] [Provider Group] - 3-5 Days [facility] [Provider Group] - 3-5 Days Time of Disposition: 00:18
[2019-05-31 01:08] VITALS: BP 138/76
== END 2019-05-31 01:10 | disposition home or self-care (01) ==
LOC: ED 19:26
DX: F41.9 Anxiety disorder, unspecified (principal); R07.89 Other chest pain; I10 Essential (primary) hypertension; F32.9 Major depressive disorder, single episode, unspecified
CPT/HCPCS: 36415; 71045; 80048; 84484; 85025; 93005; 93010; 96374; 99285; J2060

== ENCOUNTER 2020-12-24 11:55 | Emergency (ER) | payer SELFPAY ==
--- NOTE | 2020-12-24 12:37 | Emergency Department Report ---
ED General Adult HPI - General Stated complaint: MUSCLE SPASMS Time Seen by Provider: 12/24/20 12:28 Source: patient, EMS - History of Present Illness Initial comments: Patient is 60 years old female with history of anxiety, depression and hypertension. Patient brought to the emergency room by EMS from home for evaluation of diffuse muscle spasm. Patient daughter informed EMS that she did this several times before. Patient is complaining of pain all over her muscles. She also told me that this is because of her low magnesium most of the time. Patient is very anxious. Patient denied any suicidal or homicidal ideation. - Related Data Home Medications Medication Instructions Recorded Confirmed Last Taken ALPRAZolam 0.25 mg PO DAILY 12/23/14 12/23/14 Unknown Doxepin HCl 150 mg PO HS 12/23/14 12/23/14 Unknown Cyproheptadine [Periactin] 4 mg PO BID 09/09/16 09/09/16 09/08/16 Lurasidone HCl [Latuda] 40 mg PO QDAY 09/09/16 09/09/16 09/08/16 Naproxen Sodium [Aleve TAB] 220 mg PO QDAY PRN 09/09/16 09/09/16 09/09/16 Nitroglycerin [Nitrostat] 0.4 mg PO PRN 09/09/16 09/09/16 Unknown Quinapril HCl 10 mg PO QDAY 09/09/16 09/09/16 09/08/16 busPIRone [Buspar] 10 mg PO TID 09/09/16 09/09/16 09/09/16 traZODone [Desyrel] 100 mg PO QHS 09/09/16 09/09/16 09/08/16 Previous Rx's Medication Instructions Recorded Last Taken Type HYDROcodone/APAP 5-325 [[place] 1 each PO Q6HR PRN #20 tablet 12/31/18 Unknown Rx 5-325 mg TAB] Ibuprofen [Motrin 600 MG tab] 600 mg PO Q8H PRN #30 tablet 12/31/18 Unknown Rx Famotidine [Pepcid] 20 mg PO BID #60 tablet 05/09/19 Unknown Rx Magnesium Oxide [Mag-Ox] 400 mg PO QDAY #28 tablet 05/09/19 Unknown Rx hydrOXYzine HCL [Atarax] 25 mg PO Q6HR PRN #15 tablet 05/31/19 Unknown Rx Allergies Allergy/AdvReac Type Severity Reaction Status Date / Time No Known Allergies Allergy Verified 05/08/19 18:22 ED Review of Systems ROS: Stated complaint: MUSCLE SPASMS Other details as noted in HPI Comment: All other systems reviewed and negative Constitutional: denies: chills, fever Respiratory: denies: cough, shortness of breath, SOB with exertion Cardiovascular: denies: chest pain Gastrointestinal: denies: abdominal pain, nausea, vomiting Musculoskeletal: myalgia. denies: back pain Neurological: denies: headache, weakness, numbness, paresthesias, confusion, abnormal gait Psychiatric: anxiety, depression. denies: auditory hallucinations, visual hallucinations, homicidal thoughts, suicidal thoughts ED Past Medical Hx - Past Medical History Hx Hypertension: Yes Hx Congestive Heart Failure: No Hx Diabetes: No Hx Psychiatric Treatment: Yes (depression anxiety and etoh) Hx Asthma: No Hx COPD: No Hx HIV: No Additional medical history: Depression. Alcohol abuse - Surgical History Additional Surgical History: ankle surgery. x1 - Social History Smoking Status: Never Smoker Substance Use Type: Alcohol - Medications Home Medications: Home Medications Medication Instructions Recorded Confirmed Last Taken Type ALPRAZolam 0.25 mg PO DAILY 12/23/14 12/23/14 Unknown History Doxepin HCl 150 mg PO HS 12/23/14 12/23/14 Unknown History Cyproheptadine [Periactin] 4 mg PO BID 09/09/16 09/09/16 09/08/16 History Lurasidone HCl [Latuda] 40 mg PO QDAY 09/09/16 09/09/16 09/08/16 History Naproxen Sodium [Aleve TAB] 220 mg PO QDAY PRN 09/09/16 09/09/16 09/09/16 History Nitroglycerin [Nitrostat] 0.4 mg PO PRN 09/09/16 09/09/16 Unknown History Quinapril HCl 10 mg PO QDAY 09/09/16 09/09/16 09/08/16 History busPIRone [Buspar] 10 mg PO TID 09/09/16 09/09/16 09/09/16 History traZODone [Desyrel] 100 mg PO QHS 09/09/16 09/09/16 09/08/16 History HYDROcodone/APAP 5-325 [[place] 1 each PO Q6HR PRN #20 tablet 12/31/18 Unknown Rx 5-325 mg TAB] Ibuprofen [Motrin 600 MG tab] 600 mg PO Q8H PRN #30 tablet 12/31/18 Unknown Rx Famotidine [Pepcid] 20 mg PO BID #60 tablet 05/09/19 Unknown Rx Magnesium Oxide [Mag-Ox] 400 mg PO QDAY #28 tablet 05/09/19 Unknown Rx hydrOXYzine HCL [Atarax] 25 mg PO Q6HR PRN #15 tablet 05/31/19 Unknown Rx ED Physical Exam - General General appearance: alert, in no apparent distress, anxious - Head Head exam: Present: atraumatic, normocephalic, normal inspection - Eye Eye exam: Present: normal appearance, PERRL - ENT ENT exam: Present: normal exam, normal orophraynx, mucous membranes moist - Neck Neck exam: Present: normal inspection, full ROM. Absent: tenderness, meningismus - Respiratory Respiratory exam: Present: normal lung sounds bilaterally - Cardiovascular Cardiovascular Exam: Present: regular rate, normal rhythm, normal heart sounds - GI/Abdominal GI/Abdominal exam: Present: soft, normal bowel sounds. Absent: distended, tenderness, guarding, rebound, rigid, organomegaly, mass, bruit, pulsatile mass, hernia - Extremities Exam Extremities exam: Present: normal inspection, full ROM, normal capillary refill. Absent: tenderness - Back Exam Back exam: Present: normal inspection, full ROM. Absent: CVA tenderness (R), CVA tenderness (L) - Neurological Exam Neurological exam: Present: alert, oriented X3, CN II-XII intact, normal gait, reflexes normal. Absent: motor sensory deficit - Psychiatric Psychiatric exam: Present: anxious. Absent: homicidal ideation, suicidal ideation - Skin Skin exam: Present: warm, intact, normal color ED Course Vital Signs 12/24/20 12/24/20 12/24/20 11:56 12:01 12:15 Temperature 98.2 F Pulse Rate 98 H 159 H 130 H Respiratory 18 26 H Rate Blood Pressure 157/82 139/85 Blood Pressure [Right] O2 Sat by Pulse 100 98 Oximetry 12/24/20 12/24/20 12/24/20 12:31 12:38 12:45 Temperature Pulse Rate 128 H 123 H Respiratory 27 H 16 21 Rate Blood Pressure 139/80 140/82 Blood Pressure [Right] O2 Sat by Pulse 98 100 97 Oximetry 12/24/20 12/24/20 12/24/20 13:01 13:15 13:31 Temperature Pulse Rate 118 H 122 H 114 H Respiratory 20 30 H 22 Rate Blood Pressure 120/77 139/89 140/82 Blood Pressure [Right] O2 Sat by Pulse 97 98 96 Oximetry 12/24/20 12/24/20 12/24/20 13:45 14:01 14:15 Temperature Pulse Rate 112 H 108 H 106 H Respiratory 18 18 16 Rate Blood Pressure 126/78 143/79 135/76 Blood Pressure [Right] O2 Sat by Pulse 98 99 99 Oximetry 12/24/20 12/24/20 12/24/20 14:31 14:45 15:01 Temperature Pulse Rate 110 H 108 H 104 H Respiratory 12 17 16 Rate Blood Pressure 150/92 159/80 135/79 Blood Pressure [Right] O2 Sat by Pulse 100 100 98 Oximetry 12/24/20 12/24/20 12/24/20 15:15 15:31 15:45 Temperature Pulse Rate 102 H 102 H 103 H Respiratory 14 17 19 Rate Blood Pressure 135/79 135/79 135/79 Blood Pressure [Right] O2 Sat by Pulse 99 98 97 Oximetry 12/24/20 12/24/20 12/24/20 16:01 16:15 16:31 Temperature Pulse Rate 100 H 95 H 103 H Respiratory 15 14 21 Rate Blood Pressure 157/75 157/75 157/75 Blood Pressure [Right] O2 Sat by Pulse 97 98 97 Oximetry 12/24/20 12/24/20 12/24/20 16:45 17:01 17:15 Temperature Pulse Rate 91 H 91 H 93 H Respiratory 20 14 13 Rate Blood Pressure 157/75 139/76 139/76 Blood Pressure [Right] O2 Sat by Pulse 98 99 98 Oximetry 12/24/20 12/24/20 12/24/20 17:31 17:45 18:01 Temperature Pulse Rate 89 95 H 89 Respiratory 13 14 14 Rate Blood Pressure 139/76 139/76 149/74 Blood Pressure [Right] O2 Sat by Pulse 98 98 98 Oximetry 12/24/20 18:47 Temperature 98.2 F Pulse Rate 89 Respiratory 14 Rate Blood Pressure Blood Pressure 149/74 [Right] O2 Sat by Pulse 98 Oximetry ED Medical Decision Making - Lab Data Result diagrams: 12/24/20 13:15 12/24/20 13:15 Critical care attestation.: If time is entered above; I have spent that time in minutes in the direct care of this critically ill patient, excluding procedure time. ED Disposition Clinical Impression: Hypocalcemia, Hypomagnesemia Disposition: HOME / SELF CARE / HOMELESS Is pt being admited?: No Condition: Stable Instructions: Hypomagnesemia, Hypocalcemia, Adult Additional Instructions: Return if worse Referrals: CONY KONG MD [Staff Physician] - 3-5 Days PRIMARY CARE, [Primary Care Provider] - 3-5 Days
[2020-12-24] MEDS ORDERED: LORazepam 2 MG/ML VIAL IV ONE (13:14)
[2020-12-24 13:34] LABS: Basophils # (Auto) 0.1 K/mm3 (0.0-0.1); Basophils % (Auto) 0.7 % (0.0-1.8); Hematocrit 40.3 % (30.3-42.9); Hemoglobin 12.8 gm/dl (10.1-14.3); Lymphocytes # (Auto) 1.5 K/mm3 (1.2-5.4); Lymphocytes % (Auto) 11.2 % (13.4-35.0); Mean Corpuscular HGB Conc 32 % (30-34); Mean Corpuscular Volume 88 fl (79-97); Monocytes % (Auto) 7.4 % (0.0-7.3); Platelet Count 393 K/mm3 (140-440); Red Blood Count 4.57 M/mm3 (3.65-5.03); Red Cell Distribution Width 14.9 % (13.2-15.2)
[2020-12-24 13:58] LABS: Alanine Aminotransferase 37 units/L (7-56); Albumin 3.9 g/dL (3.9-5); BUN/Creatinine Ratio 6; Blood Urea Nitrogen 6 mg/dL (7-17); Calcium 6.6 mg/dL (8.4-10.2); Hemolysis Index 3
[2020-12-24] MEDS ORDERED: MAGNESIUM SULFATE 2 GM/50 ML BAG IV ONE ×2 (14:19→14:20)
[2020-12-24] MEDS ORDERED: CALCIUM CHLORIDE 1,000 MG in SODIUM CHLORIDE 0.9% 100 ML IV ONE (15:19)
--- NOTE | 2020-12-24 17:54 | Event Note ---
Date: 12/24/20 Reevaluation of the patient at 5:50 PM shows significant provement. Patient is no longer having spasms of her hands and arms. Patient received IV calcium and IV magnesium. Patient has no complaints.
[2020-12-24 18:16] VITALS: BP 149/74
== END 2020-12-24 18:49 | disposition home or self-care (01) ==
LOC: ED 11:55
DX: E83.51 Hypocalcemia (principal); E83.42 Hypomagnesemia; F32.9 Major depressive disorder, single episode, unspecified; I10 Essential (primary) hypertension; Z72.89 Other problems related to lifestyle; Z79.899 Other long term (current) drug therapy
CPT/HCPCS: 36415; 80053; 82330; 82550; 83735; 85025; 96365; 96375; 99284; J2060; J3475; 80320; G0480

== ENCOUNTER 2021-10-24 09:32 | Inpatient (IN) | payer SELFPAY ==
[2021-10-24 11:23] LABS: Hematocrit 29.5 % (30.3-42.9); Hemoglobin 9.1 gm/dl (10.1-14.3); Mean Corpuscular HGB Conc 31 % (30-34); Mean Corpuscular Volume 88 fl (79-97); Platelet Count 146 K/mm3 (140-440); Red Blood Count 3.35 M/mm3 (3.65-5.03); Red Cell Distribution Width 17.9 % (13.2-15.2)
[2021-10-24 12:07] LABS: Alanine Aminotransferase 11 units/L (7-56); Albumin 2.9 g/dL (3.9-5); BUN/Creatinine Ratio 10; Blood Urea Nitrogen 8 mg/dL (7-17); Hemolysis Index 2
[2021-10-24] MEDS ORDERED: LIDOCAINE VISCOUS 2% 15 ML ORAL LIQD MM STA (12:11)
[2021-10-24 12:15] LABS: Calcium 5.1 mg/dL (8.4-10.2)
[2021-10-24] MEDS ORDERED: CALCIUM GLUCONATE 2,000 MG in SODIUM CHLORIDE 0.9% 100 ML IV ONE (12:22)
[2021-10-24] MEDS ORDERED: CALCIUM CARBONATE 500 MG TAB CHEW PO ONE (12:22)
[2021-10-24] MEDS ORDERED: MAGNESIUM SULFATE 2 GM/50 ML BAG IV ONE (12:22)
[2021-10-24] MEDS ORDERED: POTASSIUM CHLORIDE ER 20 MEQ TAB PO ONE (12:22)
--- NOTE | 2021-10-24 12:28 | Emergency Department Report ---
ED General Adult HPI - General Chief complaint: Weakness Stated complaint: LOW CALCIUM AND POTASSIUM, WEAK Time Seen by Provider: 10/24/21 12:03 Source: patient, family, RN notes reviewed, old records reviewed Mode of arrival: Wheelchair Limitations: No Limitations - History of Present Illness Initial comments: The patient was evaluated in the emergency department for symptoms described in the history of present illness. He/she was evaluated in the context of the global COVID-19 pandemic, which necessitated consideration that the patient might be at risk for infection with the virus that causes COVID-19. Institutional protocols and algorithms that pertain to the evaluation of patients at risk for COVID-19 are in a state of rapid change based on information released by regulatory bodies including the CDC and federal and state organizations. These policies and algorithms were followed during the patient's care in the emergency department. Please note that these policies, procedures and recommendations changed on a rapid basis. During the history and physical examination I am chaperoned by nurse Jacey Walton This is a 61-year-old female, who is currently an active cancer patient, at the cancer [facility]. Her past medical history includes colon cancer, depression, anxiety, alcohol abuse, and poor baseline appetite. She has received 8 rounds of chemotherapy. Her current chemotherapic agents and therapy include fluorouracil, leucovorin, oxaliplatin, aprepitant, calcium gluconate, dexamethasone, magnesium sulfate, Neulasta potassium chloride, sodium chloride, zarxio and palonosetron She recently had outpatient laboratory studies performed on October 21, which demonstrated a white blood cell count of 23,000, hemoglobin, hematocrit of 8.8/28.7, respectively, platelet count of 196, potassium of 2.9, calcium of 5.7. She was thus instructed to return and present to this emergency room. The pat ient endorses chronic weakness and fatigue. The patient also endorses some discomfort and dry mouth sensation. Patient currently denies headache, neck pain, chest pain, abdominal pain, vomiting, diarrhea, dyschezia, vaginal irritation. -: Gradual Severity scale (0 -10): 6 Consistency: constant Improves with: none Worsens with: none - Related Data Home Medications Medication Instructions Recorded Confirmed Last Taken ALPRAZolam 0.25 mg PO DAILY 12/23/14 12/23/14 Unknown Doxepin HCl 150 mg PO HS 12/23/14 12/23/14 Unknown Cyproheptadine [Periactin] 4 mg PO BID 09/09/16 09/09/16 09/08/16 Lurasidone HCl [Latuda] 40 mg PO QDAY 09/09/16 09/09/16 09/08/16 Naproxen Sodium [Aleve TAB] 220 mg PO QDAY PRN 09/09/16 09/09/16 09/09/16 Nitroglycerin [Nitrostat] 0.4 mg PO PRN 09/09/16 09/09/16 Unknown Quinapril HCl 10 mg PO QDAY 09/09/16 09/09/16 09/08/16 busPIRone [Buspar] 10 mg PO TID 09/09/16 09/09/16 09/09/16 traZODone [Desyrel] 100 mg PO QHS 09/09/16 09/09/16 09/08/16 Previous Rx's Medication Instructions Recorded Last Taken Type HYDROcodone/APAP 5-325 [[place] 1 each PO Q6HR PRN #20 tablet 12/31/18 Unknown Rx 5-325 mg TAB] Ibuprofen [Motrin 600 MG tab] 600 mg PO Q8H PRN #30 tablet 12/31/18 Unknown Rx Famotidine [Pepcid] 20 mg PO BID #60 tablet 05/09/19 Unknown Rx Magnesium Oxide [Mag-Ox] 400 mg PO QDAY #28 tablet 05/09/19 Unknown Rx hydrOXYzine HCL [Atarax] 25 mg PO Q6HR PRN #15 tablet 05/31/19 Unknown Rx Allergies Allergy/AdvReac Type Severity Reaction Status Date / Time No Known Allergies Allergy Verified 05/08/19 18:22 ED Review of Systems ROS: Stated complaint: LOW CALCIUM AND POTASSIUM, WEAK Other details as noted in HPI Constitutional: malaise, weakness. denies: fever Eyes: denies: eye discharge ENT: other (Oral pain and mouth pain) Respiratory: denies: cough Cardiovascular: denies: chest pain Gastrointestinal: denies: abdominal pain Genitourinary: denies: dysuria Neurological: weakness Hematological/Lymphatic: denies: easy bleeding ED Past Medical Hx - Past Medical History Previous Medical History?: Yes Hx Hypertension: Yes Hx Congestive Heart Failure: No Hx Diabetes: No Hx of Cancer: Yes (colon) Hx Psychiatric Treatment: Yes (depression anxiety and etoh) Hx Asthma: No Hx COPD: No Hx HIV: No Additional medical history: Depression. Alcohol abuse - Surgical History Past Surgical History?: Yes Additional Surgical History: left ankle surgery. x1, Insertion of right chest port for chemo - Social History Smoking Status: Never Smoker Substance Use Type: Alcohol - Medications Home Medications: Home Medications Medication Instructions Recorded Confirmed Last Taken Type ALPRAZolam 0.25 mg PO DAILY 12/23/14 12/23/14 Unknown History Doxepin HCl 150 mg PO HS 12/23/14 12/23/14 Unknown History Cyproheptadine [Periactin] 4 mg PO BID 09/09/16 09/09/16 09/08/16 History Lurasidone HCl [Latuda] 40 mg PO QDAY 09/09/16 09/09/16 09/08/16 History Naproxen Sodium [Aleve TAB] 220 mg PO QDAY PRN 09/09/16 09/09/16 09/09/16 History Nitroglycerin [Nitrostat] 0.4 mg PO PRN 09/09/16 09/09/16 Unknown History Quinapril HCl 10 mg PO QDAY 09/09/16 09/09/16 09/08/16 History busPIRone [Buspar] 10 mg PO TID 09/09/16 09/09/16 09/09/16 History traZODone [Desyrel] 100 mg PO QHS 09/09/16 09/09/16 09/08/16 History HYDROcodone/APAP 5-325 [[place] 1 each PO Q6HR PRN #20 tablet 12/31/18 Unknown Rx 5-325 mg TAB] Ibuprofen [Motrin 600 MG tab] 600 mg PO Q8H PRN #30 tablet 12/31/18 Unknown Rx Famotidine [Pepcid] 20 mg PO BID #60 tablet 05/09/19 Unknown Rx Magnesium Oxide [Mag-Ox] 400 mg PO QDAY #28 tablet 05/09/19 Unknown Rx hydrOXYzine HCL [Atarax] 25 mg PO Q6HR PRN #15 tablet 05/31/19 Unknown Rx ED Physical Exam - General Limitations: No Limitations General appearance: alert, anxious - Head Head exam: Present: atraumatic, normocephalic - Eye Eye exam: Present: normal appearance, EOMI, other (Bilateral conjunctiva are pale). Absent: nystagmus - ENT ENT exam: Present: normal exam, mucous membranes dry, normal external ear exam - Neck Neck exam: Present: normal inspection, full ROM. Absent: tenderness, meningismus - Respiratory Respiratory exam: Present: normal lung sounds bilaterally. Absent: respiratory distress, wheezes, rales, rhonchi, stridor, accessory muscle use, decreased breath sounds, prolonged expiratory - Cardiovascular Cardiovascular Exam: Present: regular rate, normal rhythm, normal heart sounds. Absent: bradycardia, tachycardia, irregular rhythm, systolic murmur, diastolic murmur, rubs, gallop - GI/Abdominal GI/Abdominal exam: Present: soft. Absent: distended, tenderness, rebound, rigid, pulsatile mass - Extremities Exam Extremities exam: Present: normal inspection, full ROM, other (2+ pulses noted in the bilateral upper and lower extremities. There is no palpable cord. negative Homans sign. Muscular compartments are soft. The pelvis is stable.). Absent: pedal edema, calf tenderness - Back Exam Back exam: Present: normal inspection. Absent: tenderness, CVA tenderness (R), CVA tenderness (L), paraspinal tenderness, vertebral tenderness - Neurological Exam Neurological exam: Present: alert, oriented X3, other (No facial droop. Tongue midline. Extraocular movements intact bilaterally. Facial sensation intact to light touch in V1, V2, V3 distribution bilaterally. 5 and a 5 strength in 4 extremities. Sensation intact to light touch in 4 extremities.). Absent: motor sensory deficit - Psychiatric Psychiatric exam: Present: normal affect, normal mood - Skin Skin exam: Present: warm, dry, intact, normal color. Absent: rash ED Course Vital Signs 10/24/21 09:53 Temperature 98.9 F Pulse Rate 81 Respiratory 18 Rate Blood Pressure 116/62 [Right] O2 Sat by Pulse 100 Oximetry - Reevaluation(s) Reevaluation #1: 10/24/21 12:29 Differential diagnosis, including but not limited to: Hypocalcemia, h ypomagnesemia, hypokalemia, mucositis, chemotherapy patient Assessment and plan: 61-year-old female, who is afebrile, with reassuring vital signs, active chemotherapy patient, presenting with multiple abnormal electrolytes. Have recommended admission to the medical service for correction of electrolyte derangements. Discussed this with patient and daughter at the bedside. They are agreeable to the plan of care. Patient denies rectal pain, vaginal pain, and urinary symptoms. She has dry mucous membranes, without evidence of redness, pus or streaking, and without evidence of thrush. Philip nielsen for symptomatic control. Admit to medical service. Hospital physician, Dr. Jessica Ngo to admit to [facility] Reevaluation #2: 10/24/21 12:30 Leukocytosis expected given recent chemotherapy Do not suspect invasive bacterial infection at this time ED Medical Decision Making - Lab Data Result diagrams: 10/24/21 10:35 10/24/21 10:35 Vital Signs 10/24/21 09:53 Temperature 98.9 F Pulse Rate 81 Respiratory 18 Rate Blood Pressure 116/62 [Right] O2 Sat by Pulse 100 Oximetry Lab Results 10/24/21 10/24/21 Range/Units 10:35 10:35 WBC 48.2 H* (4.5-11.0) K/mm3 RBC 3.35 L (3.65-5.03) M/mm3 Hgb 9.1 L (10.1-14.3) gm/dl Hct 29.5 L (30.3-42.9) % MCV 88 (79-97) fl MCH 27 L (28-32) pg MCHC 31 (30-34) % RDW 17.9 H (13.2-15.2) % Plt Count 146 (140-440) K/mm3 Seg Neutrophils % [employer] Sodium 142 (137-145) mmol/L Potassium 2.6 L* (3.6-5.0) mmol/L Chloride 102.1 (98-107) mmol/L Carbon Dioxide 24 (22-30) mmol/L Anion Gap 19 mmol/L BUN 8 (7-17) mg/dL Creatinine 0.8 (0.6-1.2) mg/dL Estimated GFR > 60 ml/min BUN/Creatinine Ratio 10 % Glucose 88 (65-100) mg/dL Calcium 5.1 L* (8.4-10.2) mg/dL Total Bilirubin 0.60 (0.1-1.2) mg/dL AST 30 (5-40) units/L ALT 11 (7-56) units/L Alkaline Phosphatase 237 H (35-129) units/L Total Protein 5.8 L (6.3-8.2) g/dL Albumin 2.9 L (3.9-5) g/dL Albumin/Globulin Ratio 1.0 % - EKG Data -: EKG Interpreted by Me EKG shows normal: sinus rhythm Rate: normal - EKG Data 10/24/21 12:28 The EKG is interpreted at 12: 16 Sinus rhythm, rate 67 bpm. Normal axis, normal P wave axis, FL interval 203 ms, motion artifact in the lateral leads, T wave inversions V2, V3 and V4. This is an abnormal EKG. This is not a STEMI. The patient denies chest pain Critical care attestation.: If time is entered above; I have spent that time in minutes in the direct care of this critically ill patient, excluding procedure time. ED Disposition Clinical Impression: Hypokalemia, Hypocalcemia, Hypomagnesemia, Colon cancer, Chemotherapy-induced fatigue Disposition: ADMITTED INPATIENT Is pt being admited?: Yes Does the pt Need Aspirin: No Condition: Good
[2021-10-24] MEDS ORDERED: ACETAMINOPHEN 325 MG TAB PO PRN (12:32)
[2021-10-24] MEDS ORDERED: HYDROmorphone 0.5 MG/0.5 ML INJ IV PRN (12:32)
[2021-10-24] MEDS ORDERED: MORPHINE 2 MG/1 ML INJ IV PRN (12:32)
[2021-10-24] MEDS ORDERED: ONDANSETRON 4 MG/2 ML INJ IV PRN (12:32)
[2021-10-24] MEDS: POTASSIUM CHLORIDE 10 MEQ 10 MEQ/100 ML BAG IV SCH ×4 (13:28→20:02)
[2021-10-24 13:54] LABS: Anisocytosis 1+; Band Neutrophils # (Manual) 0.5 K/mm3; Basophils % (Manual) 0 % (0.0-1.8); Eosinophils % (Manual) 0 % (0.0-4.3); Monocytes % (Manual) 0 % (0.0-7.3); Platelet Estimate Consistent w Auto; Total Cells Counted 200
[2021-10-24] MEDS ORDERED: POTASSIUM CHLORIDE 20 MEQ PACKET PO ONE (14:20)
[2021-10-24] MEDS: MAGNESIUM OXIDE 400 MG TAB PO SCH (17:48)
[2021-10-24] MEDS ORDERED: SODIUM CHLORIDE 0.9% 500 ML 500 ML IV ONE (19:55)
[2021-10-24] MEDS ORDERED: SODIUM CHLORIDE 0.9% 500 ML 500 ML ONE (19:56)
[2021-10-24 20:05] LABS: Mucus,Urine FEW /HPF; RBC,Urine < 1.0 /HPF (0.0-6.0)
[2021-10-24 20:09] LABS: Color,Urine Yellow (Yellow)
[2021-10-24 20:10] LABS: Bilirubin,Urine Negative (Negative); Blood,Urine Negative (Negative); Protein,Urine <15 mg/dL mg/dL (Negative); Urobilinogen,Urine < 2.0 mg/dL (<2.0)
--- NOTE | 2021-10-25 01:24 | History and Physical Report ---
History of Present Illness Date of examination: 10/24/21 Date of admission: 10/24/21 17:44 Chief complaint: Severe weakness for 1 week History of present illness: 61-year-old female with history of colon cancer stage III and partial colectomy in January 2021 and chemotherapy comes in for severe weakness and abnormal electrolyte levels with low potassium level low calcium level and a low magnesium level. Patient was sent by her oncologist to the emergency room for treatment of her low calcium and low magnesium and low Potassium. No muscle spasms. No shortness of breath. Patient has a history of depression anxiety alcohol dependence received 8 rounds of chemotherapy. No fever or chills. - Past Medical History --Hypertension: Yes --Cancer: Yes (colon) --Psychiatric Treatment: Yes (depression anxiety and etoh --Additional medical history: Depression. Alcohol abuse - Surgical History --Past Surgical History?: Yes --Additional Surgical History: left ankle surgery. x1, Insertion of right chest port for chemo --Partial colectomy - Social History Social history --Smoking Status: Never Smoker --Alcohol dependence Family history --Htn - Medications Home Medications: Home Medications Medication Instructions Recorded Confirmed Last Taken Type ALPRAZolam 0.25 mg PO DAILY 12/23/14 12/23/14 Unknown History Doxepin HCl 150 mg PO HS 12/23/14 12/23/14 Unknown History Cyproheptadine [Periactin] 4 mg PO BID 09/09/16 09/09/16 09/08/16 History Lurasidone HCl [Latuda] 40 mg PO QDAY 09/09/16 09/09/16 09/08/16 History Naproxen Sodium [Aleve TAB] 220 mg PO QDAY PRN 09/09/16 09/09/16 09/09/16 History Nitroglycerin [Nitrostat] 0.4 mg PO PRN 09/09/16 09/09/16 Unknown History Quinapril HCl 10 mg PO QDAY 09/09/16 09/09/16 09/08/16 History busPIRone [Buspar] 10 mg PO TID 09/09/16 09/09/16 09/09/16 History traZODone [Desyrel] 100 mg PO QHS 09/09/16 09/09/16 09/08/16 History HYDROcodone/APAP 5-325 [[place] 1 each PO Q6HR PRN #20 tablet 12/31/18 Unknown Rx 5-325 mg TAB] Ibuprofen [Motrin 600 MG tab] 600 mg PO Q8H PRN #30 tablet 12/31/18 Unknown Rx Famotidine [Pepcid] 20 mg PO BID #60 tablet 05/09/19 Unknown Rx Magnesium Oxide [Mag-Ox] 400 mg PO QDAY #28 tablet 05/09/19 Unknown Rx hydrOXYzine HCL [Atarax] 25 mg PO Q6HR PRN #15 tablet 05/31/19 Unknown Rx Review of Systems ROS: Stated complaint: LOW CALCIUM AND POTASSIUM, WEAK Other details as noted in HPI Constitutional: malaise, weakness. denies: fever Eyes: denies: eye discharge ENT: other (Oral pain and mouth pain) Respiratory: denies: cough Cardiovascular: denies: chest pain Gastrointestinal: denies: abdominal pain Genitourinary: denies: dysuria Neurological: weakness Hematological/Lymphatic: denies: easy bleeding Medications and Allergies Allergies Allergy/AdvReac Type Severity Reaction Status Date / Time No Known Allergies Allergy Verified 05/08/19 18:22 Home Medications Medication Instructions Recorded Confirmed Last Taken Type ALPRAZolam 0.25 mg PO DAILY 12/23/14 10/25/21 2 Days Ago History ~10/23/21 Doxepin HCl 150 mg PO HS 12/23/14 10/25/21 2 Days Ago History ~10/23/21 Cyproheptadine [Periactin] 4 mg PO BID 09/09/16 10/25/21 2 Days Ago History ~10/23/21 Lurasidone HCl [Latuda] 40 mg PO QDAY 09/09/16 10/25/21 2 Days Ago History ~10/23/21 Naproxen Sodium [Aleve TAB] 220 mg PO QDAY PRN 09/09/16 10/25/21 2 Days Ago History ~10/23/21 Nitroglycerin [Nitrostat] 0.4 mg PO PRN 09/09/16 10/25/21 2 Days Ago History ~10/23/21 Quinapril HCl 10 mg PO QDAY 09/09/16 10/25/21 2 Days Ago History ~10/23/21 busPIRone [Buspar] 10 mg PO TID 09/09/16 10/25/21 2 Days Ago History ~10/23/21 traZODone [Desyrel] 100 mg PO QHS 09/09/16 10/25/21 2 Days Ago History ~10/23/21 HYDROcodone/APAP 5-325 [[place] 1 each PO Q6HR PRN #20 tablet 12/31/18 10/25/21 2 Days Ago Rx 5-325 mg TAB] ~10/23/21 Ibuprofen [Motrin 600 MG tab] 600 mg PO Q8H PRN #30 tablet 12/31/18 10/25/21 2 Days Ago Rx ~10/23/21 Famotidine [Pepcid] 20 mg PO BID #60 tablet 05/09/19 10/25/21 2 Days Ago Rx ~10/23/21 Magnesium Oxide [Mag-Ox] 400 mg PO QDAY #28 tablet 05/09/19 10/25/21 2 Days Ago Rx ~10/23/21 hydrOXYzine HCL [Atarax] 25 mg PO Q6HR PRN #15 tablet 05/31/19 10/25/21 2 Days Ago Rx ~10/23/21 Active Meds: Active Medications Acetaminophen (Acetaminophen 325 Mg Tab) 650 mg PO Q4H PRN PRN Reason: Pain MILD(1-3)/Fever >100.5/JIMENEZ Magnesium Oxide (Magnesium Oxide 400 Mg Tab) 400 mg PO QDAY [facility] Last Admin: 10/24/21 17:48 Dose: Not Given Ondansetron HCl (Ondansetron 4 Mg/2 Ml Inj) 4 mg IV Q8H PRN PRN Reason: Nausea And Vomiting Sodium Chloride (Sodium Chloride 0.9% 10 Ml Flush Syringe) 10 ml IV BID [facility] Last Admin: 10/24/21 22:12 Dose: 10 ml Sodium Chloride (Sodium Chloride 0.9% 10 Ml Flush Syringe) 10 ml IV PRN PRN PRN Reason: LINE FLUSH Exam - Constitutional Vitals: Temp Pulse Resp BP Pulse Ox 98.8 F 73 16 123/70 99 10/24/21 20:33 10/24/21 22:00 10/24/21 20:33 10/24/21 20:33 10/24/21 22:27 General appearance: Present: no acute distress, well-nourished - EENT Eyes: Present: PERRL ENT: hearing intact, clear oral mucosa - Neck Neck: Present: supple, normal ROM - Respiratory Respiratory effort: normal Respiratory: bilateral: CTA - Cardiovascular Heart rate: 78 Rhythm: regular Heart Sounds: Present: S1 & S2. Absent: rub, click - Extremities Extremities: no ischemia, pulses intact, pulses symmetrical, No edema Peripheral Pulses: within normal limits - Abdominal General gastrointestinal: Present: soft, non-tender, non-distended, normal bowel sounds Female genitourinary: Present: normal - Rectal Rectal Exam: deferred - Integumentary Integumentary: Present: clear, warm, dry - Musculoskeletal Musculoskeletal: gait normal, strength equal bilaterally - Psychiatric Psychiatric: appropriate mood/affect, intact judgment & insight - Neurologic Neurologic: CNII-XII intact, moves all extremities - Allied Health Allied health notes reviewed: nursing, case management Results - Labs CBC & Chem 7: 10/24/21 10:35 10/24/21 10:35 Labs: Laboratory Last Values WBC 48.2 K/mm3 (4.5-11.0) H* 10/24/21 10:35 RBC 3.35 M/mm3 (3.65-5.03) L 10/24/21 10:35 Hgb 9.1 gm/dl (10.1-14.3) L 10/24/21 10:35 Hct 29.5 % (30.3-42.9) L 10/24/21 10:35 MCV 88 fl (79-97) 10/24/21 10:35 MCH 27 pg (28-32) L 10/24/21 10:35 MCHC 31 % (30-34) 10/24/21 10:35 RDW 17.9 % (13.2-15.2) H 10/24/21 10:35 Plt Count 146 K/mm3 (140-440) 10/24/21 10:35 Add Manual Diff Complete 10/24/21 10:35 Total Counted 200 10/24/21 10:35 Seg Neutrophils % Veterinary Assistant 10/24/21 10:35 Seg Neuts % (Manual) 97.0 % (40.0-70.0) H 10/24/21 10:35 Band Neutrophils % 1.0 % 10/24/21 10:35 Lymphocytes % (Manual) 2.0 % (13.4-35.0) L 10/24/21 10:35 Reactive Lymphs % (Man) 0 % 10/24/21 10:35 Monocytes % (Manual) 0 % (0.0-7.3) 10/24/21 10:35 Eosinophils % (Manual) 0 % (0.0-4.3) 10/24/21 10:35 Basophils % (Manual) 0 % (0.0-1.8) 10/24/21 10:35 Metamyelocytes % 0 % 10/24/21 10:35 Myelocytes % 0 % 10/24/21 10:35 Promyelocytes % 0 % 10/24/21 10:35 Blast Cells % 0 % 10/24/21 10:35 Nucleated RBC % Not Reportable 10/24/21 10:35 Seg Neutrophils # Man 46.8 K/mm3 (1.8-7.7) H 10/24/21 10:35 Band Neutrophils # 0.5 K/mm3 10/24/21 10:35 Lymphocytes # (Manual) 1.0 K/mm3 (1.2-5.4) L 10/24/21 10:35 Abs React Lymphs (Man) 0.0 K/mm3 10/24/21 10:35 Monocytes # (Manual) 0.0 K/mm3 (0.0-0.8) 10/24/21 10:35 Eosinophils # (Manual) 0.0 K/mm3 (0.0-0.4) 10/24/21 10:35 Basophils # (Manual) 0.0 K/mm3 (0.0-0.1) 10/24/21 10:35 Metamyelocytes # 0.0 K/mm3 10/24/21 10:35 Myelocytes # 0.0 K/mm3 10/24/21 10:35 Promyelocytes # 0.0 K/mm3 10/24/21 10:35 Blast Cells # 0.0 K/mm3 10/24/21 10:35 WBC Morphology Not Reportable 10/24/21 10:35 Hypersegmented Neuts Not Reportable 10/24/21 10:35 Hyposegmented Neuts Not Reportable 10/24/21 10:35 Hypogranular Neuts Not Reportable 10/24/21 10:35 Smudge Cells Not Reportable 10/24/21 10:35 Toxic Granulation Not Reportable 10/24/21 10:35 Toxic Vacuolation Not Reportable 10/24/21 10:35 Dohle Bodies Not Reportable 10/24/21 10:35 Pelger-Huet Anomaly Not Reportable 10/24/21 10:35 Kiley Rods Not Reportable 10/24/21 10:35 Platelet Estimate Consistent w auto 10/24/21 10:35 Clumped Platelets Not Reportable 10/24/21 10:35 Plt Clumps, EDTA Not Reportable 10/24/21 10:35 Large Platelets Not Reportable 10/24/21 10:35 Giant Platelets Not Reportable 10/24/21 10:35 Platelet Satelliting Not Reportable 10/24/21 10:35 Plt Morphology Comment Not Reportable 10/24/21 10:35 RBC Morphology Not Reportable 10/24/21 10:35 Dimorphic RBCs Not Reportable 10/24/21 10:35 Polychromasia Not Reportable 10/24/21 10:35 Hypochromasia Not Reportable 10/24/21 10:35 Poikilocytosis Not Reportable 10/24/21 10:35 Anisocytosis 1+ 10/24/21 10:35 Microcytosis Not Reportable 10/24/21 10:35 Macrocytosis Not Reportable 10/24/21 10:35 Spherocytes Not Reportable 10/24/21 10:35 Pappenheimer Bodies Not Reportable 10/24/21 10:35 Sickle Cells Not Reportable 10/24/21 10:35 Target Cells Not Reportable 10/24/21 10:35 Tear Drop Cells Not Reportable 10/24/21 10:35 Ovalocytes Not Reportable 10/24/21 10:35 Helmet Cells Not Reportable 10/24/21 10:35 Granda-[place]iqu[place] Bodies Not Reportable 10/24/21 10:35 [place] Rings Not Reportable 10/24/21 10:35 Annabel Cells Not Reportable 10/24/21 10:35 Bite Cells Not Reportable 10/24/21 10:35 Crenated Cell Not Reportable 10/24/21 10:35 Elliptocytes Not Reportable 10/24/21 10:35 Acanthocytes (Spur) Not Reportable 10/24/21 10:35 Rouleaux Not Reportable 10/24/21 10:35 Hemoglobin C Crystals Not Reportable 10/24/21 10:35 Schistocytes Not Reportable 10/24/21 10:35 Malaria parasites Not Reportable 10/24/21 10:35 Get Bodies Not Reportable 10/24/21 10:35 Hem Pathologist Commnt No 10/24/21 10:35 Sodium 142 mmol/L (137-145) 10/24/21 10:35 Potassium 2.6 mmol/L (3.6-5.0) L* 10/24/21 10:35 Chloride 102.1 mmol/L (98-107) 10/24/21 10:35 Carbon Dioxide 24 mmol/L (22-30) 10/24/21 10:35 Anion Gap 19 mmol/L 10/24/21 10:35 BUN 8 mg/dL (7-17) 10/24/21 10:35 Creatinine 0.8 mg/dL (0.6-1.2) 10/24/21 10:35 Estimated GFR > 60 ml/min 10/24/21 10:35 BUN/Creatinine Ratio 10 % 10/24/21 10:35 Glucose 88 mg/dL (65-100) 10/24/21 10:35 Calcium 5.1 mg/dL (8.4-10.2) L* 10/24/21 10:35 Magnesium 0.90 mg/dL (1.7-2.3) L* 10/24/21 10:35 Total Bilirubin 0.60 mg/dL (0.1-1.2) 10/24/21 10:35 AST 30 units/L (5-40) 10/24/21 10:35 ALT 11 units/L (7-56) 10/24/21 10:35 Alkaline Phosphatase 237 units/L (35-129) H 10/24/21 10:35 Total Creatine Kinase 524 units/L (30-135) H 10/24/21 10:35 Total Protein 5.8 g/dL (6.3-8.2) L 10/24/21 10:35 Albumin 2.9 g/dL (3.9-5) L 10/24/21 10:35 Albumin/Globulin Ratio 1.0 % 10/24/21 10:35 TSH 1.790 mlU/mL (0.270-4.200) 10/24/21 11:44 Urine Color Yellow (Yellow) 10/24/21 Unknown Urine Turbidity Clear (Clear) 10/24/21 Unknown Urine pH 6.0 (5.0-7.0) 10/24/21 Unknown Ur Specific [place] 1.020 (1.003-1.030) 10/24/21 Unknown Urine Protein <15 mg/dl mg/dL (Negative) 10/24/21 Unknown Urine Glucose (UA) Negative mg/dL (Negative) 10/24/21 Unknown Urine Ketones Negative mg/dL (Negative) 10/24/21 Unknown Urine Blood Negative (Negative) 10/24/21 Unknown Urine Nitrite Negative (Negative) 10/24/21 Unknown Ur Reducing Substances Not Reportable 10/24/21 Unknown Urine Bilirubin Negative (Negative) 10/24/21 Unknown Urine Ictotest Not Reportable 10/24/21 Unknown Urine Urobilinogen < 2.0 mg/dL (<2.0) 10/24/21 Unknown Ur Leukocyte Esterase Negative (Negative) 10/24/21 Unknown Urine WBC (Auto) 1.0 /HPF (0.0-6.0) 10/24/21 Unknown Urine RBC (Auto) < 1.0 /HPF (0.0-6.0) 10/24/21 Unknown U Epithel Cells (Auto) 1.0 /HPF (0-13.0) 10/24/21 Unknown Urine Mucus Few /HPF 10/24/21 Unknown Short CBC 10/24/21 Range/Units 10:35 WBC 48.2 H* (4.5-11.0) K/mm3 Hgb 9.1 L (10.1-14.3) gm/dl Hct 29.5 L (30.3-42.9) % Plt Count 146 (140-440) K/mm3 BMP 10/24/21 10:35 Sodium 142 Potassium 2.6 L* Chloride 102.1 Carbon Dioxide 24 BUN 8 Creatinine 0.8 Glucose 88 Calcium 5.1 L* Cardiac Enzymes 10/24/21 Range/Units 10:35 Total Creatine Kinase 524 H (30-135) units/L Liver Function 10/24/21 Range/Units 10:35 Total Bilirubin 0.60 (0.1-1.2) mg/dL AST 30 (5-40) units/L ALT 11 (7-56) units/L Alkaline Phosphatase 237 H (35-129) units/L Albumin 2.9 L (3.9-5) g/dL Urine 10/24/21 Range/Units Unknown Urine Color Yellow (Yellow) Urine pH 6.0 (5.0-7.0) Ur Specific [place] 1.020 (1.003-1.030) Urine Protein <15 mg/dl (Negative) mg/dL Urine Glucose (UA) Negative (Negative) mg/dL Jamil/IV: Voiding Method Toilet Assessment and Plan Advance Directives: Yes (Full code) VTE prophylaxis?: Chemical Plan of care discussed with patient/family: Yes - Patient Problems (1) Hypokalemia Current Visit: Yes Status: Acute Plan to address problem: Supplemented (2) Leukocytosis Current Visit: Yes Status: Acute Plan to address problem: Possible leukemoid reaction Empiric antibiotics Follow-up with Dr. Bolden her oncologist and door patcher (3) Hypocalcemia Current Visit: Yes Status: Acute Plan to address problem: Being supplemented (4) Hypomagnesemia Current Visit: Yes Status: Acute Plan to address problem: Being supplemented (5) Generalized anxiety disorder Current Visit: Yes Status: Acute Plan to address problem: Continue BuSpar 3 times a day at 10 mg (6) Malnutrition Current Visit: Yes Status: Chronic Qualifiers: Protein-calorie malnutrition severity: moderate Plan to address problem: Dietary supplements (7) Colon cancer Current Visit: Yes Status: Chronic Qualifiers: Colon location: unspecified part of colon Qualified Code(s): C18.9 - Malignant neoplasm of colon, unspecified Plan to address problem: Patient had partial colectomy and end-to-end anastomosis Tumor site was removed Patient says that she is in stage III cancer and gets chemotherapy on a regular basis (8) DVT prophylaxis Current Visit: Yes Status: Acute Plan to address problem: On anticoagulation and GI prophylaxis (9) Advance care planning Current Visit: Yes Status: Acute Plan to address problem: Disease education conducted, care plan discussed, diagnosis discussed and prognosis discussed. Patient acknowledged understanding with care plan. +30 minutes. Full code.
[2021-10-25] MEDS ORDERED: ACETAMINOPHEN 325 MG TAB PO PRN (01:30)
[2021-10-25] MEDS ORDERED: ONDANSETRON 4 MG/2 ML INJ IV PRN (01:30)
[2021-10-25] MEDS ORDERED: HYDROmorphone 0.5 MG/0.5 ML INJ IV PRN (01:30)
[2021-10-25] MEDS ORDERED: METOCLOPRAMIDE 10 MG/2 ML INJ IV PRN (01:30)
[2021-10-25] MEDS ORDERED: MORPHINE 2 MG/1 ML INJ IV PRN (01:30)
[2021-10-25] MEDS ORDERED: MAGNESIUM SULFATE 2 GM/50 ML BAG IV ONE ×2 (01:37→10:50)
[2021-10-25] MEDS: CEFEPIME/NS 2 GM/100 ML 2 GM/100 ML BAG IV SCH ×3 (04:49→17:32)
[2021-10-25] MEDS: FAMOTIDINE 20 MG/2 ML INJ IV SCH ×2 (04:55→08:59)
[2021-10-25] MEDS: CALCIUM CARB/VIT D3/MINERALS 600 MG/800 UNITS TAB PO SCH ×3 (04:55→21:26)
[2021-10-25] MEDS: POTASSIUM CHLORIDE 10 MEQ 10 MEQ/100 ML BAG IV SCH ×5 (06:38→12:35)
[2021-10-25] MEDS: MAGNESIUM OXIDE 400 MG TAB PO SCH (08:59)
[2021-10-25] MEDS ORDERED: hydrOXYzine HCL 25 MG TAB PO PRN (09:23)
[2021-10-25] MEDS ORDERED: QUINAPRIL HCL 10 MG PO SCH (10:00)
[2021-10-25] MEDS ORDERED: LURASIDONE HCL 40 MG PO SCH (10:00)
[2021-10-25] MEDS ORDERED: MAGNESIUM OXIDE 400 MG TAB PO SCH (10:00)
[2021-10-25] MEDS ORDERED: POTASSIUM CHLORIDE ER 20 MEQ TAB PO SCH (10:00)
[2021-10-25] MEDS: LISINOPRIL 5 MG TAB PO SCH (11:32)
[2021-10-25] MEDS: CYPROHEPTADINE 4 MG TAB PO SCH ×2 (11:35→21:25)
[2021-10-25 11:56] LABS: Hemoglobin 8.4 gm/dl (10.1-14.3); Mean Corpuscular HGB Conc 31 % (30-34); Mean Corpuscular Volume 87 fl (79-97); Red Blood Count 3.09 M/mm3 (3.65-5.03); Red Cell Distribution Width 18.3 % (13.2-15.2)
[2021-10-25 11:56] LABS: Alanine Aminotransferase 11 units/L (7-56); Albumin 2.9 g/dL (3.9-5); BUN/Creatinine Ratio 13; Blood Urea Nitrogen 9 mg/dL (7-17); Hemolysis Index 12
[2021-10-25 11:57] LABS: Calcium 5.6 mg/dL (8.4-10.2)
[2021-10-25 12:17] LABS: Platelet Count 68 K/mm3 (140-440)
[2021-10-25] MEDS: busPIRone 10 MG TAB PO SCH ×2 (13:58→21:26)
[2021-10-25] MEDS: SODIUM CHLORIDE 0.9% 1000 ML 1,000 ML IV SCH (13:59)
--- NOTE | 2021-10-25 14:42 | Electrocardiograph Report ---
[facility] Test Date: 2021-10-24 Test Time: 12:16:04 Pat Name: LLUVIA ANNA Department: Room: A486 Gender: F Button Tacker: LAUREN : 1960 Requested By: GWEN KEYS Order Number: [id number] Reading MD: Italo Westbrook Measurements Intervals [place] Rate: 67 P: 68 NM: 203 QRS: 49 QRSD: 72 T: 96 QT: 438 QTc: 462 Interpretive Statements Sinus rhythm Abnrm T, consider ischemia, anterolateral lds No previous ECG available for comparison Electronically Signed On 10-25-2021 14:41:35 EDT by Italo Westbrook
[2021-10-25 18:11] LABS: Anisocytosis 1+; Band Neutrophils # (Manual) 1.2 K/mm3; Basophils % (Manual) 0 % (0.0-1.8); Myelocytes # (Manual) 0.6 K/mm3; Platelet Estimate Consistent w Auto; Total Cells Counted 100
[2021-10-25] MEDS: FAMOTIDINE 20 MG TAB PO SCH (21:26)
--- NOTE | 2021-10-25 21:41 | Progress Note ---
Assessment and Plan - Patient Problems (1) Chemotherapy-induced fatigue Current Visit: Yes Status: Acute Plan to address problem: Patient counseled. Fall precautions, supportive care. (2) Colon cancer Current Visit: Yes Status: Acute Qualifiers: Colon location: unspecified part of colon Qualified Code(s): C18.9 - Malignant neoplasm of colon, unspecified Plan to address problem: Follow-up as outpatient with oncology service. (3) Hypocalcemia Current Visit: Yes Status: Acute Plan to address problem: Repleted, supportive care, increase oral intake. (4) Hypokalemia Current Visit: Yes Status: Acute Plan to address problem: Repleted, increase oral intake, supportive care. (5) Leukocytosis Current Visit: Yes Status: Acute Plan to address problem: Secondary to Neulasta administration. Patient care plan discussed with hematology service. Further care and evaluation as per oncology team. (6) Malnutrition Current Visit: Yes Status: Chronic Qualifiers: Protein-calorie malnutrition severity: severe Plan to address problem: Increase oral intake, dietary supplementation. (7) DVT prophylaxis Current Visit: Yes Status: Acute Plan to address problem: SCD to bilateral lower extremities while in bed (8) Advance care planning Current Visit: Yes Status: Acute Plan to address problem: DHEC lipid, care plan discussed, diagnoses discussed. Patient poor prognosis discussed. Patient acknowledges understanding and agreement with current care plan. (9) Preventative health care Current Visit: Yes Status: Acute Plan to address problem: Patient counseled regarding prognosis. Patient informed of benefits of hospice/palliative care, patient struck to follow-up with primary care physician for all age and risk factor appropriate screening test. Patient to follow-up with oncology as outpatient for further care and evaluation. +30 minutes. History Interval history: 61-year-old female hospital day 2 with colon cancer, malnutrition, debility, hypokalemia and hypocalcemia. Patient s/p chemotherapy as per oncology team. Patient found to have poor prognosis. Patient prognosis discussed. Recommend increase oral intake, dietary supplementation. No reported nursing events. Patient resting comfortably in bed. Hospitalist Physical - Constitutional Vitals: Temp Pulse Resp BP Pulse Ox 98.0 F 75 18 105/63 93 10/25/21 16:39 10/25/21 16:39 10/25/21 16:39 10/25/21 16:39 10/25/21 16:39 General appearance: Present: no acute distress, cachectic - EENT Eyes: Present: PERRL - Neck Neck: Present: supple - Respiratory Respiratory effort: normal Respiratory: bilateral: diminished - Cardiovascular Rhythm: regular Heart Sounds: Present: S1 & S2 - Extremities Extremities: no ischemia Peripheral Pulses: within normal limits - Abdominal General gastrointestinal: soft, non-tender, non-distended - Integumentary Integumentary: Present: clear, dry - Psychiatric Psychiatric: cooperative - Neurologic Neurologic: CNII-XII intact Results - Labs CBC & Chem 7: 10/26/21 04:41 10/26/21 04:41 Labs: Laboratory Last Values WBC 61.1 K/mm3 (4.5-11.0) H* 10/25/21 05:00 RBC 3.09 M/mm3 (3.65-5.03) L 10/25/21 05:00 Hgb 8.4 gm/dl (10.1-14.3) L 10/25/21 05:00 Hct 27.0 % (30.3-42.9) L 10/25/21 05:00 MCV 87 fl (79-97) 10/25/21 05:00 MCH 27 pg (28-32) L 10/25/21 05:00 MCHC 31 % (30-34) 10/25/21 05:00 RDW 18.3 % (13.2-15.2) H 10/25/21 05:00 Plt Count 68 K/mm3 (140-440) L 10/25/21 05:00 Add Manual Diff Complete 10/25/21 05:00 Total Counted 100 10/25/21 05:00 Seg Neutrophils % [employer] D[employer] Operator Helper 10/25/21 05:00 Seg Neuts % (Manual) 92.0 % (40.0-70.0) H 10/25/21 05:00 Band Neutrophils % 2.0 % 10/25/21 05:00 Lymphocytes % (Manual) 2.0 % (13.4-35.0) L 10/25/21 05:00 Reactive Lymphs % (Man) 0 % 10/25/21 05:00 Monocytes % (Manual) 2.0 % (0.0-7.3) 10/25/21 05:00 Eosinophils % (Manual) 1.0 % (0.0-4.3) 10/25/21 05:00 Basophils % (Manual) 0 % (0.0-1.8) 10/25/21 05:00 Metamyelocytes % 0 % 10/25/21 05:00 Myelocytes % 1.0 % 10/25/21 05:00 Promyelocytes % 0 % 10/25/21 05:00 Blast Cells % 0 % 10/25/21 05:00 Nucleated RBC % Not Reportable 10/25/21 05:00 Seg Neutrophils # Man 56.2 K/mm3 (1.8-7.7) H 10/25/21 05:00 Band Neutrophils # 1.2 K/mm3 10/25/21 05:00 Lymphocytes # (Manual) 1.2 K/mm3 (1.2-5.4) 10/25/21 05:00 Abs React Lymphs (Man) 0.0 K/mm3 10/25/21 05:00 Monocytes # (Manual) 1.2 K/mm3 (0.0-0.8) H 10/25/21 05:00 Eosinophils # (Manual) 0.6 K/mm3 (0.0-0.4) H 10/25/21 05:00 Basophils # (Manual) 0.0 K/mm3 (0.0-0.1) 10/25/21 05:00 Metamyelocytes # 0.0 K/mm3 10/25/21 05:00 Myelocytes # 0.6 K/mm3 10/25/21 05:00 Promyelocytes # 0.0 K/mm3 10/25/21 05:00 Blast Cells # 0.0 K/mm3 10/25/21 05:00 WBC Morphology Not Reportable 10/25/21 05:00 Hypersegmented Neuts Not Reportable 10/25/21 05:00 Hyposegmented Neuts Not Reportable 10/25/21 05:00 Hypogranular Neuts Not Reportable 10/25/21 05:00 Smudge Cells Not Reportable 10/25/21 05:00 Toxic Granulation Not Reportable 10/25/21 05:00 Toxic Vacuolation Not Reportable 10/25/21 05:00 Dohle Bodies Not Reportable 10/25/21 05:00 Pelger-Huet Anomaly Not Reportable 10/25/21 05:00 Kiley Rods Not Reportable 10/25/21 05:00 Platelet Estimate Consistent w auto 10/25/21 05:00 Clumped Platelets Not Reportable 10/25/21 05:00 Plt Clumps, EDTA Not Reportable 10/25/21 05:00 Large Platelets Not Reportable 10/25/21 05:00 Giant Platelets Not Reportable 10/25/21 05:00 Platelet Satelliting Not Reportable 10/25/21 05:00 Plt Morphology Comment Not Reportable 10/25/21 05:00 RBC Morphology Not Reportable 10/25/21 05:00 Dimorphic RBCs Not Reportable 10/25/21 05:00 Polychromasia Not Reportable 10/25/21 05:00 Hypochromasia Not Reportable 10/25/21 05:00 Poikilocytosis Not Reportable 10/25/21 05:00 Anisocytosis 1+ 10/25/21 05:00 Microcytosis Not Reportable 10/25/21 05:00 Macrocytosis Not Reportable 10/25/21 05:00 Spherocytes Not Reportable 10/25/21 05:00 Pappenheimer Bodies Not Reportable 10/25/21 05:00 Sickle Cells Not Reportable 10/25/21 05:00 Target Cells Not Reportable 10/25/21 05:00 Tear Drop Cells Not Reportable 10/25/21 05:00 Ovalocytes Not Reportable 10/25/21 05:00 Helmet Cells Not Reportable 10/25/21 05:00 [place] Bodies Not Reportable 10/25/21 05:00 [place] Rings Not Reportable 10/25/21 05:00 [place] Cells Not Reportable 10/25/21 05:00 Bite Cells Not Reportable 10/25/21 05:00 Crenated Cell Not Reportable 10/25/21 05:00 Elliptocytes Not Reportable 10/25/21 05:00 Acanthocytes (Spur) Not Reportable 10/25/21 05:00 Rouleaux Not Reportable 10/25/21 05:00 Hemoglobin C Crystals Not Reportable 10/25/21 05:00 Schistocytes Not Reportable 10/25/21 05:00 Malaria parasites Not Reportable 10/25/21 05:00 Get Bodies Not Reportable 10/25/21 05:00 Hem Pathologist Commnt No 10/25/21 05:00 Sodium 134 mmol/L (137-145) L D 10/25/21 11:15 Potassium 4.0 mmol/L (3.6-5.0) D 10/25/21 11:15 Chloride 96.5 mmol/L (98-107) L 10/25/21 11:15 Carbon Dioxide 23 mmol/L (22-30) 10/25/21 11:15 Anion Gap 19 mmol/L 10/25/21 11:15 BUN 9 mg/dL (7-17) 10/25/21 11:15 Creatinine 0.7 mg/dL (0.6-1.2) 10/25/21 11:15 Estimated GFR > 60 ml/min 10/25/21 11:15 BUN/Creatinine Ratio 13 % 10/25/21 11:15 Glucose 133 mg/dL (65-100) H 10/25/21 11:15 Calcium 5.6 mg/dL (8.4-10.2) L* 10/25/21 11:15 Magnesium 0.90 mg/dL (1.7-2.3) L* 10/25/21 11:15 Total Bilirubin 0.70 mg/dL (0.1-1.2) 10/25/21 11:15 AST 41 units/L (5-40) H 10/25/21 11:15 ALT 11 units/L (7-56) 10/25/21 11:15 Alkaline Phosphatase 172 units/L (35-129) H 10/25/21 11:15 Total Creatine Kinase 524 units/L (30-135) H 10/24/21 10:35 Total Protein 5.1 g/dL (6.3-8.2) L 10/25/21 11:15 Albumin 2.9 g/dL (3.9-5) L 10/25/21 11:15 Albumin/Globulin Ratio 1.3 % 10/25/21 11:15 TSH 1.790 mlU/mL (0.270-4.200) 10/24/21 11:44 Urine Color Yellow (Yellow) 10/24/21 Unknown Urine Turbidity Clear (Clear) 10/24/21 Unknown Urine pH 6.0 (5.0-7.0) 10/24/21 Unknown Ur Specific [place] 1.020 (1.003-1.030) 10/24/21 Unknown Urine Protein <15 mg/dl mg/dL (Negative) 10/24/21 Unknown Urine Glucose (UA) Negative mg/dL (Negative) 10/24/21 Unknown Urine Ketones Negative mg/dL (Negative) 10/24/21 Unknown Urine Blood Negative (Negative) 10/24/21 Unknown Urine Nitrite Negative (Negative) 10/24/21 Unknown Ur Reducing Substances Not Reportable 10/24/21 Unknown Urine Bilirubin Negative (Negative) 10/24/21 Unknown Urine Ictotest Not Reportable 10/24/21 Unknown Urine Urobilinogen < 2.0 mg/dL (<2.0) 10/24/21 Unknown Ur Leukocyte Esterase Negative (Negative) 10/24/21 Unknown Urine WBC (Auto) 1.0 /HPF (0.0-6.0) 10/24/21 Unknown Urine RBC (Auto) < 1.0 /HPF (0.0-6.0) 10/24/21 Unknown U Epithel Cells (Auto) 1.0 /HPF (0-13.0) 10/24/21 Unknown Urine Mucus Few /HPF 10/24/21 Unknown Jamil/IV: Voiding Method Toilet Active Medications - Current Medications Current Medications: Generic Name Dose Route Start Last Admin Trade Name Freq PRN Reason Stop Dose Admin Acetaminophen 650 mg 10/25/21 01:30 Acetaminophen 325 Mg Tab PO Q4H PRN Pain MILD(1-3)/Fever >100.5/JIMENEZ Buspirone HCl 10 mg 10/25/21 14:00 10/25/21 21:26 Buspirone 10 Mg Tab PO 10 mg TID ROLY Administration Cyproheptadine HCl 4 mg 10/25/21 10:00 10/25/21 21:25 Cyproheptadine 4 Mg Tab PO 4 mg BID ROLY Administration Doxepin HCl 100 mg 10/25/21 22:00 10/25/21 21:25 Doxepin 100 Mg Cap PO 100 mg QHS ROLY Administration Doxepin HCl 50 mg 10/25/21 22:00 10/25/21 21:26 Doxepin 25 Mg Cap PO 50 mg HS ROLY Administration Famotidine 20 mg 10/25/21 22:00 10/25/21 21:26 Famotidine 20 Mg Tab PO 20 mg BID ROLY Administration Hydromorphone HCl 0.5 mg 10/25/21 01:30 Hydromorphone 0.5 Mg/0.5 Ml Inj IV Q3H PRN Pain , Severe (7-10) Hydroxyzine HCl 25 mg 10/25/21 09:23 Hydroxyzine Hcl 25 Mg Tab PO Q6HR PRN Anxiety Sodium Chloride 1,000 mls @ 100 mls/hr 10/25/21 01:30 10/25/21 13:59 Nacl 0.9% 1000 Ml IV 100 mls/hr DIRECT ROLY Administration Cefepime HCl 2 gm in 100 mls @ 200 mls/hr 10/25/21 02:00 10/25/21 17:32 Cefepime/Ns 2 Gm/100 Ml IV 200 mls/hr Q8H ROLY Administration Protocol Lisinopril 5 mg 10/25/21 11:00 10/25/21 11:32 Lisinopril 5 Mg Tab PO 5 mg QDAY ROLY Administration Magnesium Oxide 400 mg 10/24/21 13:00 10/25/21 08:59 Magnesium Oxide 400 Mg Tab PO 400 mg QDAY ROLY Administration Metoclopramide HCl 10 mg 10/25/21 01:30 Metoclopramide 10 Mg/2 Ml Inj IV Q6H PRN Nausea And Vomiting Miscellaneous Medication 40 mg 10/25/21 10:00 Lurasidone Hcl [Latuda] PO QDAY ROLY Morphine Sulfate 2 mg 10/25/21 01:30 Morphine 2 Mg/1 Ml Inj IV Q4H PRN Pain, Moderate (4-6) Multivitamins/Minerals 1 each 10/25/21 02:00 10/25/21 21:26 Calcium Carb/Vit D3/Minerals 600 Mg/800 Units Tab PO 1 each BID ROLY Administration Ondansetron HCl 4 mg 10/25/21 01:30 Ondansetron 4 Mg/2 Ml Inj IV Q3H PRN Nausea And Vomiting Sodium Chloride 10 ml 10/25/21 10:00 10/25/21 21:27 Sodium Chloride 0.9% 10 Ml Flush Syringe IV 10 ml BID ROLY Administration Sodium Chloride 10 ml 10/25/21 01:30 Sodium Chloride 0.9% 10 Ml Flush Syringe IV PRN PRN LINE FLUSH Trazodone HCl 100 mg 10/25/21 22:00 10/25/21 21:26 Trazodone 100 Mg Tab PO 100 mg QHS ROLY Administration
[2021-10-25] MEDS ORDERED: DOXEPIN HCL 150 MG PO SCH (22:00)
[2021-10-25] MEDS ORDERED: traZODone 100 MG TAB PO SCH (22:00)
[2021-10-25] MEDS ORDERED: DOXEPIN 100 MG CAP PO SCH (22:00)
[2021-10-25] MEDS ORDERED: DOXEPIN 25 MG CAP PO SCH (22:00)
[2021-10-26] MEDS: CEFEPIME/NS 2 GM/100 ML 2 GM/100 ML BAG IV SCH ×2 (03:07→09:04)
[2021-10-26] MEDS: SODIUM CHLORIDE 0.9% 1000 ML 1,000 ML IV SCH (03:08)
[2021-10-26 05:30] LABS: Hematocrit 23.7 % (30.3-42.9); Hemoglobin 7.4 gm/dl (10.1-14.3); Mean Corpuscular HGB Conc 31 % (30-34); Mean Corpuscular Volume 87 fl (79-97); Red Blood Count 2.72 M/mm3 (3.65-5.03); Red Cell Distribution Width 18.1 % (13.2-15.2)
[2021-10-26 05:41] LABS: Alanine Aminotransferase 8 units/L (7-56); Albumin 2.5 g/dL (3.9-5); Blood Urea Nitrogen 8 mg/dL (7-17); Hemolysis Index 12
[2021-10-26 06:12] LABS: Platelet Count 39 K/mm3 (140-440)
[2021-10-26 06:13] LABS: BUN/Creatinine Ratio 11
[2021-10-26 06:15] LABS: Calcium 5.1 mg/dL (8.4-10.2)
[2021-10-26] MEDS ORDERED: CALC GLUCONATE 1GM/NS 100 ML 1 GM/100 ML BAG IV ONE (06:30)
[2021-10-26 07:01] LABS: Anisocytosis 1+; Band Neutrophils # (Manual) 0.2 K/mm3; Basophils % (Manual) 0 % (0.0-1.8); Eosinophils % (Manual) 0 % (0.0-4.3); Monocytes % (Manual) 0.5 % (0.0-7.3); Platelet Estimate Consistent w Auto; Total Cells Counted 200
[2021-10-26] MEDS: MAGNESIUM OXIDE 400 MG TAB PO SCH (09:04)
[2021-10-26] MEDS: CYPROHEPTADINE 4 MG TAB PO SCH (09:04)
[2021-10-26] MEDS: busPIRone 10 MG TAB PO SCH ×2 (09:04→13:07)
[2021-10-26] MEDS: CALCIUM CARB/VIT D3/MINERALS 600 MG/800 UNITS TAB PO SCH (09:04)
[2021-10-26] MEDS: FAMOTIDINE 20 MG TAB PO SCH (09:04)
[2021-10-26] MEDS: LISINOPRIL 5 MG TAB PO SCH (09:05)
--- NOTE | 2021-10-26 12:37 | Discharge Summary ---
Providers - Providers Date of Admission: 10/24/21 17:44 Attending physician: MARCELL LAWS Primary care physician: HUANG BOLDEN Hospitalization Condition: Stable Hospital course: 61-year-old female with history of colon cancer stage III and partial colectomy in January 2021 and chemotherapy comes in for severe weakness and abnormal electrolyte levels with low potassium level low calcium level and a low magnesium level. Patient was sent by her oncologist to the emergency room for treatment of her low calcium and low magnesium and low Potassium. No muscle spasms. No shortness of breath. Patient has a history of depression anxiety alcohol dependence received 8 rounds of chemotherapy. No fever or chills. Patient admitted to telemetry. Patient remained asymptomatic during hospital course. Patient encouraged to have increased oral intake. Patient treated with dietary supplementation. Patient potassium and calcium levels normalized. Patient remained asymptomatic during hospital course. Patient informed of poor prognosis. Patient medically optimized. Patient status and care plan discussed with Dr. Bolden her ornament setter. Patient to follow-up with ornament setter at [facility]. Further care and evaluation as per oncology team. Patient medically optimized. Patient discharged home. Patient counseled regarding home hospice care. Patient declines at this time. 35 minutes dedicated to patient discharge and coordination of care. Disposition: 01 HOME / SELF CARE / HOMELESS Final Discharge Diagnosis (Prints w/discharge instructions): Colon cancer Time spent for discharge: 35 minutes Core Measure Documentation - Palliative Care Palliative Care/ Comfort Measures: Not Applicable - Core Measures Any of the following diagnoses?: none Exam - Constitutional Vitals: Temp Pulse Resp BP Pulse Ox 98.0 F 77 16 105/55 94 10/26/21 10:59 10/26/21 10:59 10/26/21 10:59 10/26/21 10:59 10/26/21 10:59 General appearance: Present: no acute distress, cachectic - EENT Eyes: Present: PERRL ENT: hearing intact, clear oral mucosa - Neck Neck: Present: supple, normal ROM - Respiratory Respiratory effort: normal Respiratory: bilateral: diminished - Cardiovascular Heart Sounds: Present: S1 & S2. Absent: rub, click - Extremities Extremities: pulses symmetrical, No edema Peripheral Pulses: within normal limits - Abdominal General gastrointestinal: Present: soft, non-tender, non-distended, normal bowel sounds Female genitourinary: Present: normal - Integumentary Integumentary: Present: clear, dry - Musculoskeletal Musculoskeletal: generalized weakness - Psychiatric Psychiatric: appropriate mood/affect, cooperative - Neurologic Neurologic: CNII-XII intact Plan Activity: advance as tolerated Diet: advance as tolerated Follow up with: HUANG BOLDEN MD [Primary Care Provider] - 7 Days Prescriptions: Cyproheptadine [Periactin] 4 mg PO TID #60
[2021-10-26] MEDS ORDERED: POTASSIUM CHLORIDE 20 MEQ PACKET FEEDTUBE SCH (13:00)
[2021-10-26 15:36] VITALS: BP 110/63
== END 2021-10-26 16:00 | disposition home or self-care (01) | DRG 641 ==
LOC: ED 09:32 → 4A 17:44
PROVIDERS: ADMIT Internal Medicine; ATTEND Internal Medicine
DX: E87.6 Hypokalemia (principal); C18.9 Malignant neoplasm of colon, unspecified; E44.0 Moderate protein-calorie malnutrition; Z68.1 Body mass index [BMI] 19.9 or less, adult; E83.42 Hypomagnesemia; E83.51 Hypocalcemia; I10 Essential (primary) hypertension; F32.9 Major depressive disorder, single episode, unspecified; F41.9 Anxiety disorder, unspecified; D72.829 Elevated white blood cell count, unspecified
CPT/HCPCS: 36415; 80053; 81001; 82550; 82962; 83735; 84443; 85007; 85025; 93005; G0378; J3490; J0610; J0692; J3475; J3480; J7030; J7040